=== PATIENT | male | born 1935 | race Caucasian/White ===

== ENCOUNTER 2017-08-17 17:00 | Inpatient (IN) | payer OTHER, MEDICARE ==
[~2017-08-17] VITALS: Ht 172.7 cm; Wt 71.3 kg
[2017-08-17 17:07] VITALS: BP 181/81; PULSE 85; RESP 18; TEMP 98.6; O2SAT 97
[2017-08-17 17:48] VITALS: BP 131/73; PULSE 82; RESP 18; TEMP 97.7; O2SAT 98
--- NOTE | 2017-08-17 18:32 | PD ---
HPI Chief Complaint: Psychiatric Symptoms Time Seen by Provider: 17:48 Travel History International Travel<30 days: No Contact w/Intl Traveler<30days: No Traveled to known affect area: No History of Present Illness HPI 82-year-old male presents to emergency department under He act. The patient was at physical therapy and he apparently made a statement that he was going to kill himself because he wanted to see his and they would not take him to see his . The patient has history of dementia and history of present illness is limited secondary to his dementia. The patient continuously nods his head yes when I ask him questions of being suicidal, homicidal, drug abuse, hallucinations. The patient keeps grabbing his pillow from the bed and saying that he wants to go see his . I feel the patient is not comprehending what I'm asking secondary to his dementia. I'm unable to obtain a full history of present illness secondary to his clinical condition and altered mental status. PFSH Social History Tobacco Use: No Allergies-Medications (Allergen,Severity, Reaction): Coded Allergies: No Known Allergies (Unverified , 08/17/17) Review of Systems ROS Limitations: Clinical Condition, Altered Mental Status Physical Exam Narrative GENERAL: Well-nourished, well-developed elderly, male patient, in no acute distress SKIN: Warm and dry. HEAD: Atraumatic. Normocephalic. EYES: Pupils equal and round. ENT: Mucosa pink and moist. NECK: Supple. Trachea midline. CARDIOVASCULAR: Regular rate and rhythm. No murmur appreciated. RESPIRATORY: No accessory muscle use. Clear to auscultation. Breath sounds equal bilaterally. GASTROINTESTINAL: Abdomen soft, non-tender, nondistended. Hepatic and splenic margins not palpable. Bowel sounds are active 4 quadrants. MUSCULOSKELETAL: No obvious deformities. No clubbing. No cyanosis. No edema. NEUROLOGICAL: Awake and alert. Not oriented. No obvious cranial nerve deficits. Motor grossly within normal limits. Normal speech. Moves all extremities. 5/5 strength to all extremities. PSYCHIATRIC: No delusional thought processes. No hallucinations. Data Data Last Documented VS Vital Signs Date Time Temp Pulse Resp B/P (MAP) Pulse Ox O2 Delivery O2 Flow Rate FiO2 08/17/17 17:48 97.7 82 18 131/73 (92) 98 Room Air Orders Orders Complete Blood Count With Diff (08/17/17 17:48) Comprehensive Metabolic Panel (08/17/17 17:48) Urinalysis - C+S If Indicated (08/17/17 17:48) Psych Screen (08/17/17 17:48) Drug Screen, Random Urine (08/17/17 17:48) Alcohol (Ethanol) (08/17/17 17:48) Salicylates (Aspirin) (08/17/17 17:48) Tylenol (Acetaminophen) (08/17/17 17:48) Ct Brain W/O Iv Contrast(Rout) (08/17/17 ) MDM Medical Decision Making Medical Screen Exam Complete: Yes Emergency Medical Condition: Yes Medical Record Reviewed: Yes Differential Diagnosis Dementia, Alzheimer's disease, suicidal threat medical clearance for psychiatric admission Narrative Course Patient presents under a He act. Physical examination and vital signs are essentially unremarkable. He has history of dementia and history of present illness is limited. I ordered a CT head to rule out any acute findings. Psych screen has been ordered. If the laboratory results are unremarkable, the patient will be medically cleared for psychiatric evaluation and disposition. Diagnosis Primary Impression: Medical clearance for psychiatric admission Condition: Stable Jewell Saucedo Aug 17, 2017 18:32
[2017-08-17] MEDS ORDERED: FINA5TAB2 PO (19:09)
[2017-08-17] MEDS ORDERED: METF850T PO (19:09)
[2017-08-17] MEDS ORDERED: TAMS5CAP PO (19:09)
[2017-08-17] MEDS ORDERED: METO50TA PO (19:09)
[2017-08-17] MEDS ORDERED: AMLO5TAB2 PO (19:09)
[2017-08-17] MEDS ORDERED: TRAZ50TA12 PO (19:09)
[2017-08-17] MEDS ORDERED: LANTUS2P SQ (19:09)
--- NOTE | 2017-08-17 19:53 | RADRPT ---
EXAM DATE/TIME: 08/17/2017 19:36 [place] COMPARISON: No previous studies available for comparison. INDICATIONS : Altered mental status. RADIATION DOSE: 32.38 CTDIvol (mGy) MEDICAL HISTORY : Dementia. SURGICAL HISTORY : None. ENCOUNTER: Initial ACUITY: 1 day PAIN SCALE: 0/10 LOCATION: cranial TECHNIQUE: Multiple contiguous axial images were obtained of the head. Using automated exposure control and adj ustment of the mA and/or kV according to patient size, radiation dose was kept as low as reasonably a chievable to obtain optimal diagnostic quality images. DICOM format image data is available electro nically for review and comparison. FINDINGS: There is diffuse atrophy and prominent hypodensity in the bilateral subcortical white matter, centrum semiovale and periventricular white matter characteristic of chronic microvascular ischemic disease. This does appear slightly more asymmetric in the right frontal region and the possibility of an area of subacute ischemia should be entertained. There is no evidence of hemorrhage or mass. No fractures . CONCLUSION: Atrophy and prominent white matter disease slightly asymmetric in the right frontal region as describ ed above. Tulio Jose MD on August 17, 2017 at 19:50 Board Certified Radiologist. This report was verified electronically.
[2017-08-17 20:57] LABS: AUTOMATED NEUTROPHIL # 7.7 TH/MM3 (1.8-7.7); BASOPHIL % 0.4 % (0.0-2.0); EOSINOPHIL # 0.1 TH/MM3 (0-0.4); EOSINOPHIL % 0.7 % (0.0-4.0); HEMATOCRIT 36.4 % (39.0-51.0); HEMOGLOBIN 12.2 GM/DL (13.0-17.0); LYMPH % 25.4 % (9.0-44.0); LYMPHOCYTE # 2.8 TH/MM3 (1.0-4.8); MEAN CELL VOLUME 87.4 FL (80.0-100.0); MEAN CORPUSCULAR HEMOGLOBIN 29.4 PG (27.0-34.0); MEAN CORPUSCULAR HGB CONC 33.6 % (32.0-36.0); MEAN PLATELET VOLUME 7.3 FL (7.0-11.0); MONOCYTE # 0.6 TH/MM3 (0-0.9); NEUT % 68.5 % (16.0-70.0); PLATELET COUNT 236 TH/MM3 (150-450); RED BLOOD COUNT 4.16 MIL/MM3 (4.50-5.90); RED CELL DISTRIBUTION WIDTH 13.1 % (11.6-17.2); WHITE BLOOD COUNT 11.2 TH/MM3 (4.0-11.0)
[2017-08-17 22:04] LABS: ACETAMINOPHEN LESS THAN 2.0 MCG/ML (10.0-30.0); ALBUMIN 3.9 GM/DL (3.4-5.0); ALKALINE PHOSPHATASE 52 U/L (45-117); ALT (GPT) 19 U/L (12-78); AST (GOT) 23 U/L (15-37); BLOOD UREA NITROGEN 11 MG/DL (7-18); CHLORIDE 100 MEQ/L (98-107); CREATININE 1.24 MG/DL (0.60-1.30); GLOMERULAR FILTRATION RATE 56 ML/MIN (>89); GLUCOSE,RANDOM 234 MG/DL (74-106); SODIUM (NA) 138 MEQ/L (136-145); TOTAL BILIRUBIN ADULT 0.5 MG/DL (0.2-1.0); TOTAL PROTEIN 7.5 GM/DL (6.4-8.2)
[2017-08-17 22:11] VITALS: BP 136/67; PULSE 70; RESP 18; TEMP 98.7; O2SAT 99
[2017-08-17] MEDS ORDERED: traZODone HCL 50 MG TAB PO ONE (22:45)
[2017-08-17] MEDS ORDERED: TAMSULOSIN HCL 0.4 MG CAP PO ONE (22:45)
[2017-08-17] MEDS ORDERED: metFORMIN HCL 850 MG TAB PO ONE (22:45)
[2017-08-17] MEDS ORDERED: INSULIN DETEMIR 100 UNITS/ML VIAL SQ SCH (22:45)
[2017-08-17] MEDS ORDERED: GLUCAGON 1 MG/ML VIAL OTHER PRN (23:00)
[2017-08-17] MEDS ORDERED: ACETAMINOPHEN 325 MG TAB PO PRN (23:00)
[2017-08-17] MEDS ORDERED: DEXTROSE 50% IN WATER 50 ML VIAL(D50) IV PUSH PRN (23:00)
[2017-08-17] MEDS ORDERED: NICOTINE 21 MG/24 HR PATCH T-DERMAL PRN (23:00)
[2017-08-17] MEDS ORDERED: MAGNESIUM HYDROXIDE SUSP 30 ML CUP PO PRN (23:00)
[2017-08-17] MEDS ORDERED: ALUMINUM/MAGNESIUM/SIMETH 30 ML CUP PO PRN (23:00)
[2017-08-17 23:35] VITALS: BP 151/80; PULSE 86; RESP 17; TEMP 97.7; O2SAT 97
[2017-08-18 05:47] VITALS: BP 114/58; PULSE 100; RESP 18; TEMP 98.4; O2SAT 98
[2017-08-18] MEDS: INSULIN ASPART SUPPLEMENTAL SCALE SQ SCH ×4 (08:00→20:36)
[2017-08-18 09:18] VITALS: BP 129/64; PULSE 95
[2017-08-18] MEDS: FINASTERIDE 5 MG TAB PO SCH (09:20)
[2017-08-18] MEDS: amLODIPine BESYLATE 5 MG TAB PO SCH (09:20)
[2017-08-18] MEDS: METOPROLOL TARTRATE 50 MG TAB PO SCH (09:20)
[2017-08-18 10:12] LABS: AUTOMATED NEUTROPHIL # 6.1 TH/MM3 (1.8-7.7); BASOPHIL # 0.1 TH/MM3 (0-0.2); BASOPHIL % 0.6 % (0.0-2.0); EOSINOPHIL # 0.1 TH/MM3 (0-0.4); EOSINOPHIL % 1.3 % (0.0-4.0); HEMATOCRIT 35.9 % (39.0-51.0); HEMOGLOBIN 12.1 GM/DL (13.0-17.0); LYMPH % 29.2 % (9.0-44.0); LYMPHOCYTE # 2.8 TH/MM3 (1.0-4.8); MEAN CELL VOLUME 86.4 FL (80.0-100.0); MEAN CORPUSCULAR HEMOGLOBIN 29.1 PG (27.0-34.0); MEAN CORPUSCULAR HGB CONC 33.7 % (32.0-36.0); MEAN PLATELET VOLUME 7.2 FL (7.0-11.0); MONO % 5.4 % (0.0-8.0); MONOCYTE # 0.5 TH/MM3 (0-0.9); NEUT % 63.5 % (16.0-70.0); PLATELET COUNT 211 TH/MM3 (150-450); RED BLOOD COUNT 4.16 MIL/MM3 (4.50-5.90); RED CELL DISTRIBUTION WIDTH 13.3 % (11.6-17.2); WHITE BLOOD COUNT 9.6 TH/MM3 (4.0-11.0)
[2017-08-18 10:59] LABS: BICARBONATE 31.2 MEQ/L (21.0-32.0); BLOOD UREA NITROGEN 14 MG/DL (7-18); CALCIUM 8.8 MG/DL (8.5-10.1); CHLORIDE 102 MEQ/L (98-107); CHOLESTEROL 133 MG/DL (120-200); CHOLESTEROL/ HDL RATIO 2.71 RATIO; CREATININE 0.99 MG/DL (0.60-1.30); GLOMERULAR FILTRATION RATE 72 ML/MIN (>89); GLUCOSE,RANDOM 125 MG/DL (74-106); HDL CHOLESTEROL 48.9 MG/DL (40.0-60.0); LDL CHOLESTEROL 63 MG/DL (0-99); SODIUM (NA) 140 MEQ/L (136-145); TRIGLYCERIDES 104 MG/DL (42-150)
--- NOTE | 2017-08-18 11:02 | HHI.HP ---
Provisional Diagnosis Admission Date Aug 17, 2017 at 22:48 [place] other diseases FiO2.81 with Alzheimer's disease UG 30.1 Certification of Person's Competence To Provide Express and Informed Consent I have personally examined Edgar Gilliland , a person being served at [facility] on, Aug 18, 2017 10:38. Express and informed consent means consent voluntarily given in writing, by a competent person, after sufficient explanation and disclosure of the subject matter involved to enable the person to make a knowing and willful decision without any element of force, fraud, deceit, duress, or other form of constraint or coercion. This person is 18 years of age or older, is not now known to be incompetent to consent to treatment with a guardian advocate, and does not have a health care surrogate or proxy currently making medical treatment decisions. I have found this person to be one of the following: [] Competent to provide express and informed consent, as defined above, for voluntary admission to this facility and is competent to provide express and informed consent for treatment. He/she has the consistent capacity to make well reasoned, willful, and knowing decisions concerning his or her medical or mental health treatment. The person fully and consistently understands the purpose of the admission for examination/placement and is fully capable of personally exercising all rights assured under [place]xxx] Incompetent to provide express and informed consent to voluntary admission , and this is incompetent to provide express and informed consent to treatment. The person must be transferred to involuntary status and a petition for a guardian advocate filed with the Circuit Court. [] Refusing to provide express and informed consent to voluntary admission but is competent to provide express and informed consent for treatment. The person must be discharged or transferred to involuntary status. Form shall be completed within 24 hours of a person's arrival at the receiving facility and filed in the clinical record of each person: 1. Admitted on a voluntary basis 2. Permitted to provide express and informed consent to his/her own treatment 3. Allowed to transfer from involuntary to voluntary status 4. Prior to permitting a person to consent to his or her own treatment after having been previously found incompetent to consent to treatment. History of Present Illness Capacity: Lacks Capacity Psych Chief Complaint: patient demented made suicidal statements HPI Patient is an 82-year-old male comes here under He act signed by the [facility]'s office dated 08/17/17 at 0349 hours that documented reviewed the essentially stating. During a therapy session Noel Gilliland stated he wanted to kill himself because of frustration. Piper Gilliland is bouts of Noel Gilliland said he has made statements like this in the past. Noel Gilliland is currently being treated for dementia. It appears the patient lives with his . They've has been suffering from dementia for next Monday. Of time. The rest sleep had a stroke was hospitalized at [facility] and released about 2-3 days ago with home health rehabilitation. It is during one of these visits that the statement was made. The rehabilitation nurse call the patient's physician who called the police leading to the He act in his admission to this unit. And toxicology was not drawn in the ED. Though blood alcohol level was negative. At the present time patient sitting quietly in the day room nurse dilip she present throughout session. He is alert oriented to his name only. Is not no the location date time or situation. Is with his . Though he is calling this place my home (referring to me personally). It appears there is no prior psychiatric contact hospitalization psychotropic medications. As mentioned patient does little his it appears there is no adult daughter who lives nearby who is involved with them. Present time patient does meet criteria for acute inpatient psychiatric hospitalization under the He act. I'll do first opinion request second opinion. I feel he has no capacity at this time thus I'll ask for healthcare surrogate and guardian advocate. We'll continue his medications with the med reconciliation. We will attempt to arrange a family meeting for Monday 08/21. There is notation in the psych screeners note that placement may become important to family . Review of Systems ROS Limitations: Clinical Condition, Altered Mental Status Past Psych History Psychological trauma history Difficult to ascertain due to patient's cognitive deficit Violence risk - others (6 mos) Low Violence risk - self (6 mos) Patient made statements referring to suicidal ideation intent Substance Abuse History Drugs/Alcohol past 12 months Difficult agitated at this time cognitive deficits Past Family Social History Coded Allergies: No Known Allergies (Unverified , 08/17/17) Reported Medications Tamsulosin (Flomax) 0.4 Mg Cap, 0.4 MG PO HS for Manage Prostate Problems, #30 CAP 0 Refills 08/17/17 Finasteride (Finasteride) 5 Mg Tab, 5 MG PO DAILY for Manage Prostate Problems, #30 TAB 0 Refills Do not crush. 08/17/17 Amlodipine (Amlodipine) 5 Mg Tab, 5 MG PO DAILY for Blood Pressure Management, # 30 TAB 0 Refills 08/17/17 Trazodone (Trazodone) 50 Mg Tab, 50 MG PO HS for Control Depression, #30 TAB 0 Refills 08/17/17 Metoprolol Tartrate (Metoprolol Tartrate) 50 Mg Tab, 50 MG PO DAILY, #30 TAB 0 Refills 08/17/17 Insulin Glargine Inj (Lantus Inj) 1,000 Unit/10 Ml Vial, 10 UNITS SQ HS for Blood Sugar Management, VIAL 0 Refills 08/17/17 Metformin (Metformin) 850 Mg Tab, 850 MG PO BIDPC for Blood Sugar Management, TAB 0 Refills 08/17/17 Current Medications Medications (Trade) Dose Ordered Sig/Britney Route Start Time Stop Time Status Last Admin (Norvasc) 5 mg DAILY PO 08/18/17 09:00 08/18/17 09:20 (Proscar) 5 mg DAILY PO 08/18/17 09:00 08/18/17 09:20 (Levemir Inj) 10 units HS SQ 08/18/17 21:00 (Lopressor) 50 mg DAILY PO 08/18/17 09:00 08/18/17 09:20 (Flomax) 0.4 mg HS PO 08/18/17 21:00 (Desyrel) 50 mg HS PO 08/18/17 21:00 Future Hold (Tylenol) 650 mg Q4H PRN PO 08/17/17 23:00 (Milk Of Magnesia Liq) 30 ml DAILY PRN PO 08/17/17 23:00 (Mag-Al Plus Susp Liq) 30 ml Q6H PRN PO 08/17/17 23:00 (Habitrol 21 Mg Patch.24 Hr) 1 patch DAILY PRN T-DERMAL 08/17/17 23:00 (D50w (Vial) Inj) 50 ml UNSCH PRN IV PUSH 08/17/17 23:00 (Glucagon Inj) 1 mg UNSCH PRN OTHER 08/17/17 23:00 (NovoLOG SUPPLEMENTAL SCALE) 1 ACHS SLIDING SCALE SQ 08/18/17 08:00 (Melatonin) 5 mg HS PRN PO 08/17/17 23:00 Future Hold Family Psych History Unknown at this time due to cognitive deficits Social History Patient lives with his , appears an adult daughter who is local and involved with family Patient's Strengths (min. 2) Patient able axis health care has supportive family Physical Exam Patient medically cleared in ED patient sitting quietly in dayroom in no acute distress, no respiratory distress no complaints of pain Vital Signs Vital Signs Date Time Temp Pulse Resp B/P (MAP) Pulse Ox O2 Delivery O2 Flow Rate FiO2 08/18/17 09:18 95 129/64 (85) 08/18/17 05:47 98.4 18 98 08/17/17 22:11 Room Air Lab Results Test 08/17/17 20:30 08/18/17 08:27 08/18/17 08:28 White Blood Count 11.2 TH/MM3 9.6 TH/MM3 Red Blood Count 4.16 MIL/MM3 4.16 MIL/MM3 Hemoglobin 12.2 GM/DL 12.1 GM/DL Hematocrit 36.4 % 35.9 % Mean Corpuscular Volume 87.4 FL 86.4 FL Mean Corpuscular Hemoglobin 29.4 PG 29.1 PG Mean Corpuscular Hemoglobin Concent 33.6 % 33.7 % Red Cell Distribution Width 13.1 % 13.3 % Platelet Count 236 TH/MM3 211 TH/MM3 Mean Platelet Volume 7.3 FL 7.2 FL Neutrophils (%) (Auto) 68.5 % 63.5 % Lymphocytes (%) (Auto) 25.4 % 29.2 % Monocytes (%) (Auto) 5.0 % 5.4 % Eosinophils (%) (Auto) 0.7 % 1.3 % Basophils (%) (Auto) 0.4 % 0.6 % Neutrophils # (Auto) 7.7 TH/MM3 6.1 TH/MM3 Lymphocytes # (Auto) 2.8 TH/MM3 2.8 TH/MM3 Monocytes # (Auto) 0.6 TH/MM3 0.5 TH/MM3 Eosinophils # (Auto) 0.1 TH/MM3 0.1 TH/MM3 Basophils # (Auto) 0.0 TH/MM3 0.1 TH/MM3 CBC Comment DIFF FINAL DIFF FINAL Differential Comment Blood Urea Nitrogen 11 MG/DL Creatinine 1.24 MG/DL Random Glucose 234 MG/DL Total Protein 7.5 GM/DL Albumin 3.9 GM/DL Calcium Level 9.0 MG/DL Alkaline Phosphatase 52 U/L Aspartate Amino Transf (AST/SGOT) 23 U/L Alanine Aminotransferase (ALT/SGPT) 19 U/L Total Bilirubin 0.5 MG/DL Sodium Level 138 MEQ/L Potassium Level 4.1 MEQ/L Chloride Level 100 MEQ/L Carbon Dioxide Level 28.0 MEQ/L Anion Gap 10 MEQ/L Estimat Glomerular Filtration Rate 56 ML/MIN Salicylates Level LESS THAN 1.7 MG/DL Acetaminophen Level LESS THAN 2.0 MCG/ML Ethyl Alcohol Level LESS THAN 3 MG/DL Mental Status Examination Appearance: Appropriate Consciousness: Alert Orientation: Person (vaguely) Motor Activity: Other (unable ascertain patient sitting down in day room will get PT assessment) Speech: Hesitant Language: Other (disorganized) Fund of Knowledge: Poor Attention and Concentration: Easily Distracted Memory: Impaired Mood: Other (restricted mildly dysphoric) Affect: Other (decreased range of motion intensity) Thought Process & Associations: Disorganized Thought Content: Other (disorganized) Hallucination Type: None Delusion Type: None Suicidal Ideation: Yes (patient made vague suicidal statements) Suicidal Plan: No Suicidal Intention: No Homicidal Ideation: No Homicidal Plan: No Homicidal Intention: No Insight: Poor Judgment: Poor Assessment & Plan Problem List: (1) OTHER ALZHEIMER'S DISEASE ICD Codes: G30.8 - OTHER ALZHEIMER'S DISEASE (2) DEMENTIA IN OTH DISEASES CLASSD ELSWHR W BEHAVIORAL DISTURB ICD Codes: F02.81 - DEMENTIA IN OTH DISEASES CLASSD ELSWHR W BEHAVIORAL DISTURB Assessment & Plan Estimated LOS 7: days patient meets criteria for involuntary psychiatric hospitalization of the He act I'll do first opinion request second opinion. I feel he is no capacity thus I'll ask for healthcare surrogate and guardian advocate. We'll continue medication per med reconciliation. Continue her observation assessment. Attempt to arrange family meeting for Monday 08/21 Discharge Planning See above we need to confer with family about placement issues Request HC Surrog/Guard Advoc?: Yes Sanford Patel MD Aug 18, 2017 11:02
--- NOTE | 2017-08-18 15:41 | PD.CONS ---
[facility] By Dr. Tee Reason for Consult Chronic medical conditions decreased GFR Primary Care Physician Unknown Diagnoses: (1) Dementia (2) BPH (benign prostatic hyperplasia) (3) Diabetes mellitus (4) HTN (hypertension) (5) Decreased GFR History of Present Illness 82-year-old male with past medical history significant for dementia, BPH, diabetes, and hypertension admitted to inpatient psychiatry under a He act following suicidal statements to home physical therapist. Patient is seen and examined in his room with nurse at bedside. He is alert and oriented to self and believes he is in a hospital. He denies any pain or discomfort, denies fevers, chills, nausea, vomiting, diarrhea. When asked later if he is having pain with urination he says yes. Patient noted to have soiled pants with urine. I asked patient if he is aware when he has to use the restroom and he says yes. Patient is a very poor historian and information was gathered from the daughter Piper who is listed as next of kin. Daughter states that patient was in his usual state of health when he fell at home and was treated at [facility]. She reports that patient suffered a minor stroke, asked if he suffered any bleed in the brain but daughter is unsure. She reports that patient did not have any imaging done as he would not stay still. She also denies knowing of any aspirin or blood thinners. She reports that patient was discharged home with physical therapy and was doing well up until the day he made suicidal statements. His other history includes dementia which is not a new diagnosis, BPH, diabetes, and hypertension. Daughter states that patient was doing well and the only change to his medications recently was increased and his blood pressure medicine. Review of Systems Except as stated in HPI: all other systems reviewed are Neg Past Family Social History Allergies: Coded Allergies: No Known Allergies (Unverified , 08/17/17) Past Medical History History obtained from Daughter Piper Dementia BPH HTN ?mild stroke after fall, not able to have imaging due to constant movement. Past Surgical History History obtained from Gilles Saldaña Hernia repair Reported Medications Reported Meds & Active Scripts Active Reported Flomax (Tamsulosin HCl) 0.4 Mg Cap 0.4 Mg PO HS Finasteride 5 Mg Tab 5 Mg PO DAILY Do not crush. Amlodipine (Amlodipine Besylate) 5 Mg Tab 5 Mg PO DAILY Trazodone (Trazodone HCl) 50 Mg Tab 50 Mg PO HS Metoprolol Tartrate 50 Mg Tab 50 Mg PO DAILY Lantus Inj (Insulin Glargine) 1,000 Unit/10 Ml Vial 10 Units SQ HS Metformin (Metformin HCl) 850 Mg Tab 850 Mg PO BIDPC Active Ordered Medications Current Medications Medications (Trade) Dose Ordered Sig/Britney Route Start Time Stop Time Status Last Admin (Norvasc) 5 mg DAILY PO 08/18/17 09:00 08/18/17 09:20 (Proscar) 5 mg DAILY PO 08/18/17 09:00 08/18/17 09:20 (Levemir Inj) 10 units HS SQ 08/18/17 21:00 (Lopressor) 50 mg DAILY PO 08/18/17 09:00 08/18/17 09:20 (Flomax) 0.4 mg HS PO 08/18/17 21:00 (Desyrel) 50 mg HS PO 08/18/17 21:00 Future Hold (Tylenol) 650 mg Q4H PRN PO 08/17/17 23:00 (Milk Of Magnesia Liq) 30 ml DAILY PRN PO 08/17/17 23:00 (Mag-Al Plus Susp Liq) 30 ml Q6H PRN PO 08/17/17 23:00 (D50w (Vial) Inj) 50 ml UNSCH PRN IV PUSH 08/17/17 23:00 (Glucagon Inj) 1 mg UNSCH PRN OTHER 08/17/17 23:00 (NovoLOG SUPPLEMENTAL SCALE) 1 ACHS SLIDING SCALE SQ 08/18/17 08:00 08/18/17 11:47 (Melatonin) 5 mg HS PRN PO 08/17/17 23:00 Future Hold (Atarax) 50 mg Q6H PRN PO 08/18/17 11:00 Family History Mom: breast CA Father: DM Social History History obtained from Daughter Piper Tobacco:never smoked Alcohol: Holidays and special occasions Illicit drug use: Denies Physical Exam Vital Signs Vital Signs Date Time Temp Pulse Resp B/P (MAP) Pulse Ox O2 Delivery O2 Flow Rate FiO2 08/18/17 09:18 95 129/64 (85) 08/18/17 05:47 98.4 100 18 114/58 (76) 98 08/17/17 23:56 08/17/17 23:35 97.7 86 17 151/80 (103) 97 08/17/17 22:11 98.7 70 18 136/67 (90) 99 Room Air 08/17/17 17:48 97.7 82 18 131/73 (92) 98 Room Air 08/17/17 17:07 98.6 85 18 181/81 (114) 97 Physical Exam GENERAL: This is a well-nourished, well-developed patient, in no apparent distress. SKIN: No rashes, ecchymoses or lesions. Cool and dry. HEAD: Atraumatic. Normocephalic. EYES: Pupils equal round and reactive. Extraocular motions intact. No scleral icterus. No injection or drainage. ENT: Nose without bleeding, purulent drainage or septal hematoma. Throat without erythema. Uvula midline. Airway patent. NECK: Trachea midline. No JVD. Supple, nontender. CARDIOVASCULAR: Regular rate and rhythm without murmurs, gallops, or rubs. RESPIRATORY: Clear to auscultation. Breath sounds equal bilaterally. No wheezes , rales, or rhonchi. GASTROINTESTINAL: Abdomen soft, non-tender, nondistended. No guarding. MUSCULOSKELETAL: Extremities without clubbing, cyanosis, or edema. No joint tenderness, effusion, or edema noted. No calf tenderness. NEUROLOGICAL: Awake and alert. Cranial nerves II through XII intact. Motor and sensory grossly within normal limits. 4/4 muscle strength in all muscle groups. Normal speech, no facial droop. Laboratory Laboratory Tests Test 08/17/17 20:30 08/18/17 08:27 08/18/17 08:28 White Blood Count 11.2 9.6 Red Blood Count 4.16 4.16 Hemoglobin 12.2 12.1 Hematocrit 36.4 35.9 Mean Corpuscular Volume 87.4 86.4 Mean Corpuscular Hemoglobin 29.4 29.1 Mean Corpuscular Hemoglobin Concent 33.6 33.7 Red Cell Distribution Width 13.1 13.3 Platelet Count 236 211 Mean Platelet Volume 7.3 7.2 Neutrophils (%) (Auto) 68.5 63.5 Lymphocytes (%) (Auto) 25.4 29.2 Monocytes (%) (Auto) 5.0 5.4 Eosinophils (%) (Auto) 0.7 1.3 Basophils (%) (Auto) 0.4 0.6 Neutrophils # (Auto) 7.7 6.1 Lymphocytes # (Auto) 2.8 2.8 Monocytes # (Auto) 0.6 0.5 Eosinophils # (Auto) 0.1 0.1 Basophils # (Auto) 0.0 0.1 CBC Comment DIFF FINAL DIFF FINAL Differential Comment Blood Urea Nitrogen 11 14 Creatinine 1.24 0.99 Random Glucose 234 125 Total Protein 7.5 Albumin 3.9 Calcium Level 9.0 8.8 Alkaline Phosphatase 52 Aspartate Amino Transf (AST/SGOT) 23 Alanine Aminotransferase (ALT/SGPT) 19 Total Bilirubin 0.5 Sodium Level 138 140 Potassium Level 4.1 3.7 Chloride Level 100 102 Carbon Dioxide Level 28.0 31.2 Anion Gap 10 7 Estimat Glomerular Filtration Rate 56 72 Salicylates Level LESS THAN 1.7 Acetaminophen Level LESS THAN 2.0 Ethyl Alcohol Level LESS THAN 3 Triglycerides Level 104 Cholesterol Level 133 LDL Cholesterol 63 HDL Cholesterol 48.9 Cholesterol/HDL Ratio 2.71 Thyroid Stimulating Hormone 3rd Gen 1.010 Result Diagram: 08/18/17 0827 08/18/17 0828 Imaging Last Impressions Head CT 08/17/17 0000 Signed Impressions: Service Date/Time: August 19:36 - CONCLUSION: Atrophy and prominent white matter disease slightly asymmetric in the right frontal region as described above. Tulio Jose MD Assessment and Plan Assessment and Plan 82-year-old male with past medical history significant for dementia, BPH, diabetes, and hypertension admitted to inpatient psychiatry under a He act following suicidal statements to home physical therapist. Alzheimer/dementia - Patient He acted following suicidal statements to home physical therapist - Continue psych recommendations Hypertension, controlled - Continue Norvasc 5 mg daily, and metoprolol 50 mg daily, continue monitoring BP Diabetes II - Hemoglobin A1c pending - BS this a.m. 115, noon 253 - Insulin sliding scale low dose, consider increasing to medium dose depending on blood sugar trend - Continue Levemir 10 units at bedtime, metformin on hold due to decreased GFR - Continue 1800 ADA diet, will add bedtime snack. Decreased GFR - Daughter denies any known renal history. - Creatinine 1.24---->0.99, GFR 59---> 72 - Renal function slightly improved, continue glycemic control with insulin - Avoid nephrotoxic agents. - Recheck renal function 1/7 BPH - Continue Flomax 0.4 mg - Episode of incontinence noted, UA ordered and sent - Patient has been afebrile, WBC count this morning normal ? Stroke - CT brain completed 08/17 reviewed, atrophy and prominent white matter disease slightly asymmetric in the right frontal region, possibility of an acute or subacute ischemia should be entertained, no evidence of hemorrhage, mass or fractures. - Patient with no residual weakness noted - Will try and obtain medical records from [facility], consider starting low dose ASA if patient was diagnosed with stroke. DVT prophylaxis-patient ambulating Patient was discussed with nurse, and daughter Piper. Problem Qualifiers (1) Diabetes mellitus: Ketan Arora Aug 18, 2017 15:41
[2017-08-18 16:39] LABS: BACTERIA, URINE OCC /hpf; BILIRUBIN, URINE NEG (NEG); BLOOD, URINE NEG (NEG); GLUCOSE,URINE 150 mg/dL (NEG); KETONE, URINE NEG (NEG); MUCUS URINE FEW /lpf (OCC); NITRITE,URINE POS (NEG); SQUAMOUS EPITHELIAL CELL URINE <1 /hpf (0-5); URINE COLOR YELLOW (YELLW/STRAW); URINE LEUKOCYTE ESTERASE SMALL (NEG)
[2017-08-18 18:16] VITALS: BP 131/66; PULSE 77; RESP 16; TEMP 98.2; O2SAT 97
[2017-08-18] MEDS: TAMSULOSIN HCL 0.4 MG CAP PO SCH (20:38)
[2017-08-18] MEDS: traZODone HCL 50 MG TAB PO SCH (20:38)
[2017-08-18] MEDS ORDERED: traZODone HCL 50 MG TAB PO SCH (21:00)
[2017-08-18] MEDS ORDERED: INSULIN DETEMIR 100 UNITS/ML VIAL SQ SCH (21:00)
--- NOTE | 2017-08-18 22:03 | EKG ---
Date Performed: 08/18/2017 Time Performed: 01:09:39 PTAGE: 82 years EKG: Sinus rhythm WITH OCCASIONAL VENTRICULAR PREMATURE COMPLEXES WITH OCCASIONAL SUPRAVENTRICULAR PREMATURE COMPLEXES BORDERLINE ECG NO PREVIOUS TRACING DOCTOR: Kevyn Gutierrez Interpretating Date/Time 08/18/2017 22:02:54
[2017-08-19 06:12] VITALS: BP 155/64; PULSE 109; RESP 18; TEMP 97.5; O2SAT 96
[2017-08-19] MEDS: INSULIN ASPART SUPPLEMENTAL SCALE SQ SCH ×4 (08:00→20:33)
[2017-08-19] MEDS: METOPROLOL TARTRATE 50 MG TAB PO SCH ×2 (09:17→20:36)
[2017-08-19] MEDS: amLODIPine BESYLATE 5 MG TAB PO SCH (09:17)
[2017-08-19] MEDS: FINASTERIDE 5 MG TAB PO SCH (09:17)
[2017-08-19] MEDS: hydrOXYzine HCL 50 MG TAB PO PRN ×2 (12:48→18:36)
--- NOTE | 2017-08-19 15:10 | HHI.PR ---
Subjective Remarks Follow-up visit dementia, BPH, DM 2, HTN. Patient seen and examined today lying in bed. Reports he is doing well. States that he is cold. Diffuse otherwise denies pain or discomfort. Denies chest pain palpitations. Denies fevers, chills, nausea, vomiting, diarrhea. Denies dysuria. Objective Vitals Vital Signs Date Time Temp Pulse Resp B/P (MAP) Pulse Ox O2 Delivery O2 Flow Rate FiO2 08/19/17 06:12 97.5 109 18 155/64 (94) 96 08/18/17 18:16 98.2 77 16 131/66 (87) 97 Result Diagram: 08/18/17 0827 08/18/17 0828 Imaging Last Impressions Head CT 08/17/17 0000 Signed Impressions: Service Date/Time: August 19:36 - CONCLUSION: Atrophy and prominent white matter disease slightly asymmetric in the right frontal region as described above. Tulio Jose MD Objective Remarks GENERAL: This is a well-nourished, well-developed patient, in no apparent distress. SKIN: Warm and dry. HEENT: Normocephalic. Pupils equal round and reactive. Nose without bleeding. Airway patent. NECK: Trachea midline. CARDIOVASCULAR: Regular rate and rhythm without murmurs, gallops, or rubs. RESPIRATORY: Clear to auscultation. Breath sounds equal bilaterally. No wheezes , rales, or rhonchi. GASTROINTESTINAL: Abdomen soft, non-tender, nondistended. Bowel Sounds normoactive x4. MUSCULOSKELETAL: Extremities without clubbing, cyanosis, or edema. NEUROLOGICAL: Awake and alert. Oriented to person. No focal neuro deficit. Moves all extremities. Normal speech. A/P Problem List: (1) Dementia ICD Code: F03.90 - Unspecified dementia without behavioral disturbance (2) BPH (benign prostatic hyperplasia) ICD Code: N40.0 - Benign prostatic hyperplasia without lower urinary tract symptoms (3) Diabetes mellitus ICD Code: E11.9 - Type 2 diabetes mellitus without complications (4) HTN (hypertension) ICD Code: I10 - Essential (primary) hypertension (5) Decreased GFR ICD Code: R94.4 - Abnormal results of kidney function studies Assessment and Plan 82-year-old male with past medical history significant for dementia, BPH, diabetes, and hypertension admitted to inpatient psychiatry under a He act following suicidal statements to home physical therapist. Alzheimer/dementia - He acted following suicidal statements to home physical therapist - Edged by psychiatry team Hypertension, controlled - Continue Norvasc 5 mg daily, and metoprolol 50 mg daily, continue monitoring BP Diabetes 2, uncontrolled - Hemoglobin A1c 10 - Insulin sliding scale low dose. - Increase Levemir 10 units twice a day, continue to hold metformin due to decreased GFR - Continue 1800 ADA diet, will add bedtime snack. - Monitor glucose trend Decreased GFR - Daughter denies any known renal history. - Creatinine 1.24 --->0.99, GFR 59 ---> 72 - Renal function slightly improved, continue glycemic control with insulin - Avoid nephrotoxic agents. BPH - Continue Flomax 0.4 mg - Episode of incontinence noted, UA ordered and sent - Patient has been afebrile, WBC count this morning normal ? Stroke - CT brain completed 08/17 reviewed, atrophy and prominent white matter disease slightly asymmetric in the right frontal region, possibility of an acute or subacute ischemia should be entertained, no evidence of hemorrhage, mass or fractures. - Patient with no residual weakness noted - Obtain medical records from [facility] - Start Low dose ASA 81 DVT prophylaxis-patient ambulating Problem Qualifiers (1) Diabetes mellitus: Jose Ramon Stacy Aug 19, 2017 15:10
[2017-08-19] MEDS: INSULIN DETEMIR 100 UNITS/ML VIAL SQ SCH (16:00)
--- NOTE | 2017-08-19 16:42 | HHI.PYPN ---
Subjective Chief Complaint: patient demented made suicidal statements Remarks Is a request for second opinion. Patient was seen and case was discussed with nursing. Admission note was reviewed and I agree with the contents. He remains labile and tearful. He says he feels hopeless and has passive suicidal ideation that he was not alive. He has no intent or plan. Behaving well on the unit. Mental Status Examination Appearance: Appropriate Consciousness: Alert Orientation: Person (vaguely), Place Motor Activity: Other (unable ascertain patient sitting down in day room will get PT assessment) Speech: Hesitant Language: Other (disorganized) Fund of Knowledge: Poor Attention and Concentration: Easily Distracted Memory: Impaired Mood: Other (restricted mildly dysphoric) Affect: Other (decreased range of motion intensity) Thought Process & Associations: Disorganized Thought Content: Other (disorganized) Hallucination Type: None Delusion Type: None Suicidal Ideation: Yes (patient made vague suicidal statements) Suicidal Plan: No Suicidal Intention: No Homicidal Ideation: No Homicidal Plan: No Homicidal Intention: No Insight: Poor Judgment: Poor Results Labs Date/Time Source Procedure Growth Status 08/18/17 15:21 Urine Clean Catch Urine Culture - Final 50-100,000 CFU/ML MIXED JUAN... Complete Vitals/IOs Vital Signs Date Time Temp Pulse Resp B/P (MAP) Pulse Ox O2 Delivery O2 Flow Rate FiO2 08/19/17 06:12 97.5 109 18 155/64 (94) 96 08/17/17 22:11 Room Air Assessment & Plan Problem List: (1) OTHER ALZHEIMER'S DISEASE ICD Codes: G30.8 - OTHER ALZHEIMER'S DISEASE (2) DEMENTIA IN OTH DISEASES CLASSD ELSWHR W BEHAVIORAL DISTURB ICD Codes: F02.81 - DEMENTIA IN OTH DISEASES CLASSD ELSWHR W BEHAVIORAL DISTURB Assessment & Plan I agree with the first opinion to continue petition. Criteria include suicidal ideation Justification for Cont. Inpt. Patient will decompensate in a less restrictive setting Request HC Surrog/Guard Advoc?: Yes Mike Alba DO Aug 19, 2017 16:42
[2017-08-19 18:14] VITALS: BP 120/64; PULSE 96; RESP 18; TEMP 96.8; O2SAT 100
[2017-08-19] MEDS: traZODone HCL 50 MG TAB PO SCH (20:36)
[2017-08-19] MEDS: TAMSULOSIN HCL 0.4 MG CAP PO SCH (20:36)
[2017-08-20] MEDS: hydrOXYzine HCL 50 MG TAB PO PRN ×2 (02:47→16:00)
[2017-08-20 06:00] VITALS: BP 116/61; PULSE 78; RESP 17; TEMP 97.4; O2SAT 99
[2017-08-20] MEDS: INSULIN DETEMIR 100 UNITS/ML VIAL SQ SCH ×2 (06:04→16:00)
[2017-08-20] MEDS: INSULIN ASPART SUPPLEMENTAL SCALE SQ SCH ×4 (08:00→19:54)
[2017-08-20] MEDS: amLODIPine BESYLATE 5 MG TAB PO SCH (08:39)
[2017-08-20] MEDS: ASPIRIN EC 81 MG TABEC PO SCH (08:39)
[2017-08-20] MEDS: FINASTERIDE 5 MG TAB PO SCH (08:39)
[2017-08-20] MEDS: METOPROLOL TARTRATE 50 MG TAB PO SCH ×2 (08:39→19:55)
--- NOTE | 2017-08-20 15:38 | HHI.PYPN ---
Subjective Chief Complaint: patient demented made suicidal statements Remarks Patient was seen and case discussed with nursing. Interview conducted in Bulgarian today. Patient appears improved compared to yesterday where he was making suicidal thoughts. Today he is perseverant on Jg where any bad thoughts that he gets will be solved by his beliefs. He does not appear to remember the statements he made yesterday. He says his mood has improved and he is no longer depressed. Denies suicidal or homicidal ideation intent or plan. Affect is congruent, not tearful Mental Status Examination Appearance: Appropriate Consciousness: Alert Orientation: Person (vaguely), Place Motor Activity: Other (unable ascertain patient sitting down in day room will get PT assessment) Speech: Hesitant Language: Other (disorganized) Fund of Knowledge: Poor Attention and Concentration: Easily Distracted Memory: Impaired Mood: Anxious Affect: Anxious Thought Process & Associations: Disorganized Thought Content: Preoccupations, Other (disorganized) Hallucination Type: None Delusion Type: None Suicidal Ideation: Yes (patient made vague suicidal statements) Suicidal Plan: No Suicidal Intention: No Homicidal Ideation: No Homicidal Plan: No Homicidal Intention: No Insight: Poor Judgment: Poor Results Labs Date/Time Source Procedure Growth Status 08/18/17 15:21 Urine Clean Catch Urine Culture - Final 50-100,000 CFU/ML MIXED JUAN... Complete Vitals/IOs Vital Signs Date Time Temp Pulse Resp B/P (MAP) Pulse Ox O2 Delivery O2 Flow Rate FiO2 08/20/17 06:00 97.4 78 17 116/61 (79) 99 08/17/17 22:11 Room Air Intake and Output 08/20/17 08/20/17 08/21/17 08:00 16:00 00:00 Intake Total 0 ml 240 ml Balance 0 ml 240 ml Assessment & Plan Problem List: (1) OTHER ALZHEIMER'S DISEASE ICD Codes: G30.8 - OTHER ALZHEIMER'S DISEASE (2) DEMENTIA IN OTH DISEASES CLASSD ELSWHR W BEHAVIORAL DISTURB ICD Codes: F02.81 - DEMENTIA IN OTH DISEASES CLASSD ELSWHR W BEHAVIORAL DISTURB Assessment & Plan Continue current treatment plan Justification for Cont. Inpt. Patient will decompensate in a less restrictive setting Request HC Surrog/Guard Advoc?: Yes Mike Alba DO Aug 20, 2017 15:38
[2017-08-20 18:08] VITALS: BP 148/67; PULSE 89; RESP 18; TEMP 97.4
[2017-08-20] MEDS ORDERED: diphenhydrAMINE HCL 50 MG/ML VIAL ONE (18:22)
[2017-08-20] MEDS ORDERED: LORazepam 2 MG/ML VIAL ONE (18:22)
[2017-08-20] MEDS ORDERED: LORazepam 2 MG/ML VIAL IM ONE (18:30)
[2017-08-20] MEDS ORDERED: diphenhydrAMINE HCL 50 MG/ML VIAL IM ONE (18:30)
[2017-08-20] MEDS: traZODone HCL 50 MG TAB PO SCH (19:55)
[2017-08-20] MEDS: TAMSULOSIN HCL 0.4 MG CAP PO SCH (19:55)
[2017-08-21] MEDS: INSULIN DETEMIR 100 UNITS/ML VIAL SQ SCH ×2 (06:12→15:49)
[2017-08-21 06:49] VITALS: BP 142/92; PULSE 81; RESP 16; TEMP 97.5; O2SAT 97
[2017-08-21] MEDS: INSULIN ASPART SUPPLEMENTAL SCALE SQ SCH ×4 (07:29→21:00)
[2017-08-21] MEDS: METOPROLOL TARTRATE 50 MG TAB PO SCH ×2 (08:51→21:00)
[2017-08-21] MEDS: amLODIPine BESYLATE 5 MG TAB PO SCH (08:51)
[2017-08-21] MEDS: ASPIRIN EC 81 MG TABEC PO SCH (08:51)
[2017-08-21] MEDS: FINASTERIDE 5 MG TAB PO SCH (08:52)
--- NOTE | 2017-08-21 09:41 | HHI.PR ---
Subjective Remarks Follow-up visit dementia, BPH, DM 2, HTN. Patient seen and examined sitting up in day room, appears somewhat sleepy still. He is oriented to self and place, denies any pain, SOB, headache, or fevers. He does not voice any complaints or concerns. Objective Vitals Vital Signs Date Time Temp Pulse Resp B/P (MAP) Pulse Ox O2 Delivery O2 Flow Rate FiO2 08/21/17 06:49 97.5 81 16 142/92 (109) 97 08/20/17 18:08 97.4 89 18 148/67 (94) I/O 08/20/17 08/20/17 08/20/17 08/21/17 08/21/17 08/21/17 07:00 15:00 23:00 07:00 15:00 23:00 Intake Total 0 ml 240 ml 120 ml Balance 0 ml 240 ml 120 ml Intake Oral 0 ml 240 ml 120 ml # Voids 1 Result Diagram: 08/18/17 0827 08/18/17 0828 Imaging Last Impressions Head CT 08/17/17 0000 Signed Impressions: Service Date/Time: August 19:36 - CONCLUSION: Atrophy and prominent white matter disease slightly asymmetric in the right frontal region as described above. Tulio Jose MD Objective Remarks GENERAL: This is a well-nourished, well-developed patient, in no apparent distress. SKIN: Warm and dry. HEENT: Normocephalic. Pupils equal round and reactive. Nose without bleeding. Airway patent. NECK: Trachea midline. CARDIOVASCULAR: Regular rate and rhythm without murmurs, gallops, or rubs. RESPIRATORY: Clear to auscultation. Breath sounds equal bilaterally. No wheezes , rales, or rhonchi. GASTROINTESTINAL: Abdomen soft, non-tender, nondistended. Bowel Sounds normoactive x4. MUSCULOSKELETAL: Extremities without clubbing, cyanosis, or edema. NEUROLOGICAL: Awake and alert. Oriented to person and place. No focal neuro deficit. Moves all extremities bilateral upper and lower extremity strength + 4. Normal speech. A/P Problem List: (1) Dementia ICD Code: F03.90 - Unspecified dementia without behavioral disturbance (2) BPH (benign prostatic hyperplasia) ICD Code: N40.0 - Benign prostatic hyperplasia without lower urinary tract symptoms (3) Diabetes mellitus ICD Code: E11.9 - Type 2 diabetes mellitus without complications (4) HTN (hypertension) ICD Code: I10 - Essential (primary) hypertension (5) Decreased GFR ICD Code: R94.4 - Abnormal results of kidney function studies Assessment and Plan 82-year-old male with past medical history significant for dementia, BPH, diabetes, and hypertension admitted to inpatient psychiatry under a He act following suicidal statements to home physical therapist. Alzheimer/dementia - He acted following suicidal statements to home physical therapist - Treatment by psychiatry team Hypertension, controlled - Continue Norvasc 5 mg daily, and metoprolol 50 mg daily - Diastolic slightly elevated to day 92, continue to monitor and adjust medications if needed, otherwise his BP has been well controlled. Diabetes 2, uncontrolled - Hemoglobin A1c 10 - Insulin sliding scale low dose. - Levemir 10 units twice a day, continue to hold metformin due to decreased GFR - Continue 1800 ADA diet, with bedtime snack. - Monitor glucose trend Decreased GFR - Daughter denies any known renal history. - Creatinine 1.24 --->0.99, GFR 59 ---> 72 - Renal function slightly improved, continue glycemic control with insulin - Avoid nephrotoxic agents. BPH - Continue Flomax 0.4 mg - Episode of incontinence noted, UA culture with >15-100,000 mixed barry, probably contaminated. - Patient has been afebrile and asymptomatic, last WBC count normal ? Stroke - CT brain completed 08/17 reviewed, atrophy and prominent white matter disease slightly asymmetric in the right frontal region, possibility of an acute or subacute ischemia should be entertained, no evidence of hemorrhage, mass or fractures. - Patient with no residual weakness noted - Continue low dose ASA 81 DVT prophylaxis-patient ambulating Problem Qualifiers (1) Diabetes mellitus: Ketan Arora Aug 21, 2017 09:41
--- NOTE | 2017-08-21 10:19 | PD.TTN ---
Patient Problems 1. Discharge planning 2. Medication compliance 3. Knowledge deficit 4. Lack of coping skills Progress Toward Goals Provider Present: Dr. Parker Patel Provider Input: 08/21/2017 - Dr. Patel reports that we will have a family meeting with this patient's on Tuesday, August 22, 2017 at 9:s0 a.m. Psychiatric Counselors Present: KESHA Mccoy Psych Therapist Input: 08/21/2017 - Counselor will attend a family meeting tomorros at 9:30 to discuss treatment plan, medication management, and plan for discharge. Group Spec/RT/OT/GARCIA Present: Severo Guerrero OT Group Spec/RT/OT/GARCIA Input: 08/21/2017 - Patient is not participating in groups. Discharge Plan SMA Documentation Scribe: KESHA Mccoy Date Resolved: Aug 21, 2017 Rosemarie Brown Aug 21, 2017 10:19
--- NOTE | 2017-08-21 12:26 | HHI.PYPN ---
Subjective Chief Complaint: patient demented made suicidal statements Remarks Patient seen in day room with nurse Bernice, patient calm quiet pleasantly confused. No behavior problems noted, patient compliant medications. Review of Systems Except as stated in HPI: all other systems reviewed are Neg Mental Status Examination Appearance: Appropriate Consciousness: Alert Orientation: Person (vaguely), Place Motor Activity: Other (unable ascertain patient sitting down in day room will get PT assessment) Speech: Hesitant Language: Other (disorganized) Fund of Knowledge: Poor Attention and Concentration: Easily Distracted Memory: Impaired Mood: Anxious Affect: Anxious Thought Process & Associations: Disorganized Thought Content: Preoccupations, Other (disorganized) Hallucination Type: None Delusion Type: None Suicidal Ideation: Yes (patient made vague suicidal statements) Suicidal Plan: No Suicidal Intention: No Homicidal Ideation: No Homicidal Plan: No Homicidal Intention: No Insight: Poor Judgment: Poor Results Labs Date/Time Source Procedure Growth Status 08/18/17 15:21 Urine Clean Catch Urine Culture - Final 50-100,000 CFU/ML MIXED JUAN... Complete Vitals/IOs Vital Signs Date Time Temp Pulse Resp B/P (MAP) Pulse Ox O2 Delivery O2 Flow Rate FiO2 08/21/17 06:49 97.5 81 16 142/92 (109) 97 08/17/17 22:11 Room Air Assessment & Plan Problem List: (1) OTHER ALZHEIMER'S DISEASE ICD Codes: G30.8 - OTHER ALZHEIMER'S DISEASE (2) DEMENTIA IN OTH DISEASES CLASSD ELSWHR W BEHAVIORAL DISTURB ICD Codes: F02.81 - DEMENTIA IN OTH DISEASES CLASSD ELSWHR W BEHAVIORAL DISTURB Assessment & Plan Estimated LOS: days patient remains demented and confused, no behavioral problems at this time Justification for Cont. Inpt. At this time patient will decompensate in place to the lower level of care Discharge Planning Need further discussion of patient's family Request HC Surrog/Guard Advoc?: Yes Sanford Patel MD Aug 21, 2017 12:26
[2017-08-21 17:00] VITALS: BP 147/66; PULSE 88; RESP 16; TEMP 98.2; O2SAT 98
[2017-08-21] MEDS: traZODone HCL 50 MG TAB PO SCH (21:00)
[2017-08-21] MEDS: TAMSULOSIN HCL 0.4 MG CAP PO SCH (21:00)
[2017-08-22 06:00] VITALS: BP 100/53; PULSE 81; RESP 17; TEMP 98.6; O2SAT 98
[2017-08-22 06:17] VITALS: BP 100/53; PULSE 81; RESP 17; TEMP 98.6
[2017-08-22] MEDS: INSULIN DETEMIR 100 UNITS/ML VIAL SQ SCH ×2 (06:36→16:08)
[2017-08-22] MEDS: INSULIN ASPART SUPPLEMENTAL SCALE SQ SCH ×4 (07:00→21:00)
[2017-08-22] MEDS: amLODIPine BESYLATE 5 MG TAB PO SCH (07:09)
[2017-08-22 07:20] VITALS: BP 109/58
[2017-08-22] MEDS: METOPROLOL TARTRATE 50 MG TAB PO SCH ×2 (07:20→21:16)
[2017-08-22] MEDS: FINASTERIDE 5 MG TAB PO SCH (08:38)
[2017-08-22] MEDS: ASPIRIN EC 81 MG TABEC PO SCH (08:38)
[2017-08-22 09:46] LABS: BICARBONATE 29.4 MEQ/L (21.0-32.0); CALCIUM 8.7 MG/DL (8.5-10.1); CREATININE 1.16 MG/DL (0.60-1.30)
--- NOTE | 2017-08-22 10:41 | HHI.PYPN ---
Subjective Chief Complaint: patient demented made suicidal statements Remarks Patient seen in day room with nurse Amador chart review, patient continues confused demented somewhat labile stating over and over again "I want to be with my " while patient no significant behavior today was noted that after last family visits he became quite out of control. Will add Seroquel 25 mg 3 times a day at noon 5 PM and 10 PM Review of Systems Except as stated in HPI: all other systems reviewed are Neg Mental Status Examination Appearance: Appropriate Consciousness: Alert Orientation: Person (vaguely), Place Motor Activity: Other (unable ascertain patient sitting down in day room will get PT assessment) Speech: Hesitant Language: Other (disorganized) Fund of Knowledge: Poor Attention and Concentration: Easily Distracted Memory: Impaired Mood: Anxious Affect: Anxious Thought Process & Associations: Disorganized Thought Content: Preoccupations, Other (disorganized) Hallucination Type: None Delusion Type: None Suicidal Ideation: Yes (patient made vague suicidal statements) Suicidal Plan: No Suicidal Intention: No Homicidal Ideation: No Homicidal Plan: No Homicidal Intention: No Insight: Poor Judgment: Poor Results Labs Test 08/22/17 08:20 Blood Urea Nitrogen 32 MG/DL Creatinine 1.16 MG/DL Random Glucose 160 MG/DL Calcium Level 8.7 MG/DL Sodium Level 138 MEQ/L Potassium Level 4.0 MEQ/L Chloride Level 102 MEQ/L Carbon Dioxide Level 29.4 MEQ/L Anion Gap 7 MEQ/L Estimat Glomerular Filtration Rate 60 ML/MIN Date/Time Source Procedure Growth Status 08/18/17 15:21 Urine Clean Catch Urine Culture - Final 50-100,000 CFU/ML MIXED JUAN... Complete Vitals/IOs Vital Signs Date Time Temp Pulse Resp B/P (MAP) Pulse Ox O2 Delivery O2 Flow Rate FiO2 08/22/17 07:20 109/58 (75) 08/22/17 06:17 98.6 81 17 08/22/17 06:00 98 Intake and Output 08/22/17 08/22/17 08/22/17 07:59 15:59 23:59 Intake Total 360 ml Balance 360 ml Assessment & Plan Problem List: (1) OTHER ALZHEIMER'S DISEASE ICD Codes: G30.8 - OTHER ALZHEIMER'S DISEASE (2) DEMENTIA IN OTH DISEASES CLASSD ELSWHR W BEHAVIORAL DISTURB ICD Codes: F02.81 - DEMENTIA IN OTH DISEASES CLASSD [facility]HAV[facility]AL DISTURB Assessment & Plan Estimated LOS: days patient continues confused and demented seen medication adjustments above Justification for Cont. Inpt. This time patient will decompensate placed in a lower level of care Discharge Planning This needs to discussed with patient's family Request HC Surrog/Guard Advoc?: Yes Sanford Patel MD Aug 22, 2017 10:41
[2017-08-22] MEDS: QUEtiapine FUMARATE 25 MG TAB PO SCH ×3 (12:00→23:14)
--- NOTE | 2017-08-22 13:19 | HHI.PR ---
Subjective Remarks overall doing fine. denies pain or new complaints. blood sugar trend noted. Objective Vitals Vital Signs Date Time Temp Pulse Resp B/P (MAP) Pulse Ox O2 Delivery O2 Flow Rate FiO2 08/22/17 07:20 109/58 (75) 08/22/17 06:17 98.6 81 17 100/53 (69) 08/22/17 06:00 98.6 81 17 100/53 (69) 98 08/21/17 17:00 98.2 88 16 147/66 (93) 98 I/O 08/21/17 08/21/17 08/21/17 08/22/17 08/22/17 08/22/17 06:59 14:59 22:59 06:59 14:59 22:59 Intake Total 120 ml 480 ml 720 ml 120 ml 480 ml Balance 120 ml 480 ml 720 ml 120 ml 480 ml Intake Oral 120 ml 480 ml 720 ml 120 ml 480 ml # Voids 5 1 2 # Bowel Movements 1 Result Diagram: 08/18/17 0827 08/22/17 0820 Imaging Last Impressions Head CT 08/17/17 0000 Signed Impressions: Service Date/Time: August 19:36 - CONCLUSION: Atrophy and prominent white matter disease slightly asymmetric in the right frontal region as described above. Tulio Jose MD Objective Remarks GENERAL: This is a well-nourished, well-developed patient, in no apparent distress. CARDIOVASCULAR: Regular rate and regular rhythm without murmurs, gallops, or rubs. RESPIRATORY: Clear to auscultation. Breath sounds equal bilaterally. No wheezes , rales, or rhonchi. GASTROINTESTINAL: Abdomen soft, non-tender, nondistended. Normal, active bowel sounds MUSCULOSKELETAL: Extremities without clubbing, cyanosis, or edema. NEURO: awake and alert Medications and IVs Inpatient Medications Acetaminophen (Tylenol) 650 mg Q4H PRN PO Pain 1-5 or Temp >101F Last administered on 08/19/17at 05:25; Start 08/17/17 at 23:00 Al Hydrox/Mg Hydrox/Simethicone (Mag-Al Plus Susp Liq) 30 ml Q6H PRN PO DYSPEPSIA; Start 08/17/17 at 23:00 Amlodipine Besylate (Norvasc) 5 mg DAILY PO Last administered on 08/21/17at 08:51 ; Start 08/18/17 at 09:00 Aspirin (Ecotrin Ec) 81 mg DAILY PO Last administered on 08/22/17at 08:38; Start 08/20/17 at 09:00 Dextrose (D50w (Vial) Inj) 50 ml UNSCH PRN IV PUSH HYPOGLYCEMIA-SEE COMMENTS; Start 08/17/17 at 23:00 Diphenhydramine HCl (Benadryl Inj) 50 mg NOW ONCE IM ; Start 08/20/17 at 18:30; Stop 08/20/17 at 18:31; Status DC Finasteride (Proscar) 5 mg DAILY PO Last administered on 08/22/17at 08:38; Start 08/18/17 at 09:00 Glucagon (Glucagon Inj) 1 mg UNSCH PRN OTHER HYPOGLYCEMIA-SEE COMMENTS; Start 08/17/17 at 23:00 Hydroxyzine HCl (Atarax) 50 mg Q6H PRN PO ANXIETY Last administered on at 16:00; Start 08/18/17 at 11:00 Insulin Aspart (NovoLOG SUPPLEMENTAL SCALE) 1 ACHS SLIDING SCALE SQ Last administered on 08/22/17at 11:09; Start 08/18/17 at 08:00 Insulin Detemir (Levemir Inj) 10 units BIDAC SQ Last administered on 08/22/17at 06:36; Start 08/19/17 at 16:00 Lorazepam (Ativan Inj) 1 mg NOW ONCE IM ; Start 08/20/17 at 18:30; Stop 08/20/17 at 18:31; Status DC Magnesium Hydroxide (Milk Of Magnesia Liq) 30 ml DAILY PRN PO CONSTIPATION; Start 08/17/17 at 23:00 Melatonin (Melatonin) 5 mg HS PRN PO INSOMNIA; Start 08/17/17 at 23:00; Status Future hold Metformin HCl (Glucophage) 850 mg ONCE ONCE PO Last administered on 08/17/17at 22:45; Start 08/17/17 at 22:45; Stop 08/17/17 at 22:46; Status DC Metoprolol Tartrate (Lopressor) 50 mg BID PO Last administered on 08/21/17at 21: 00; Start 08/19/17 at 21:00 Nicotine (Habitrol 21 Mg Patch.24 Hr) 1 patch DAILY PRN T-DERMAL Nicotine craving; Start 08/17/17 at 23:00; Stop 08/18/17 at 10:38; Status DC Quetiapine Fumarate (SEROquel) 25 mg TID@1200,1700,2200 PO Last administered on 08/22/17at 12:00; Start 08/22/17 at 12:00 Tamsulosin HCl (Flomax) 0.4 mg HS PO Last administered on 08/21/17at 21:00; Start 08/18/17 at 21:00 Trazodone HCl (Desyrel) 50 mg HS PO Last administered on 08/21/17at 21:00; Start 08/18/17 at 21:00 A/P Problem List: (1) Dementia ICD Code: F03.90 - Unspecified dementia without behavioral disturbance (2) BPH (benign prostatic hyperplasia) ICD Code: N40.0 - Benign prostatic hyperplasia without lower urinary tract symptoms (3) Diabetes mellitus ICD Code: E11.9 - Type 2 diabetes mellitus without complications (4) HTN (hypertension) ICD Code: I10 - Essential (primary) hypertension (5) Decreased GFR ICD Code: R94.4 - Abnormal results of kidney function studies Assessment and Plan Alzheimer/dementia - He acted following suicidal statements to home physical therapist - Treatment by psychiatry team Hypertension, controlled - Continue Norvasc 5 mg daily, and metoprolol 50 mg daily Diabetes 2, uncontrolled - Hemoglobin A1c 10 - Insulin sliding scale low dose. - Levemir 10 units twice a day, continue to hold metformin due to decreased GFR - Continue 1800 ADA diet, with bedtime snack. - Monitor glucose trend Decreased GFR - Daughter denies any known renal history. - Renal function slightly improved, continue glycemic control with insulin - Avoid nephrotoxic agents. BPH - Continue Flomax 0.4 mg - Episode of incontinence noted, UA culture with >15-100,000 mixed barry, probably contaminated. - Patient has been afebrile and asymptomatic, last WBC count normal ? Stroke - CT brain completed 08/17 reviewed, atrophy and prominent white matter disease slightly asymmetric in the right frontal region, possibility of an acute or subacute ischemia should be entertained, no evidence of hemorrhage, mass or fractures. - Patient with no residual weakness noted - Continue low dose ASA 81 Problem Qualifiers (1) Diabetes mellitus: Kimani Valdivia MD Aug 22, 2017 13:19
[2017-08-22 17:18] VITALS: BP 117/60; PULSE 102; RESP 16; TEMP 97.5; O2SAT 98
[2017-08-22] MEDS: traZODone HCL 50 MG TAB PO SCH (21:16)
[2017-08-22] MEDS: TAMSULOSIN HCL 0.4 MG CAP PO SCH (21:16)
[2017-08-23 06:07] VITALS: BP 119/59; PULSE 70; RESP 16; TEMP 98.4
[2017-08-23] MEDS: INSULIN ASPART SUPPLEMENTAL SCALE SQ SCH ×4 (08:00→21:00)
[2017-08-23] MEDS: amLODIPine BESYLATE 5 MG TAB PO SCH (09:00)
[2017-08-23] MEDS: METOPROLOL TARTRATE 50 MG TAB PO SCH ×2 (09:00→21:00)
[2017-08-23] MEDS: ASPIRIN EC 81 MG TABEC PO SCH (09:04)
[2017-08-23] MEDS: FINASTERIDE 5 MG TAB PO SCH (09:04)
[2017-08-23] MEDS: INSULIN DETEMIR 100 UNITS/ML VIAL SQ SCH ×2 (09:21→16:00)
--- NOTE | 2017-08-23 12:09 | HHI.PYPN ---
Subjective Chief Complaint: patient demented made suicidal statements Remarks Patient seen in day room with nurse Sea, chart reviewed, patient compliant medication. Patient continues confused and disoriented. Though that this time no significant behavioral problems. For now continue treatment Review of Systems Except as stated in HPI: all other systems reviewed are Neg Mental Status Examination Appearance: Appropriate Consciousness: Alert Orientation: Person (vaguely), Place Motor Activity: Other (unable ascertain patient sitting down in day room will get PT assessment) Speech: Hesitant Language: Other (disorganized) Fund of Knowledge: Poor Attention and Concentration: Easily Distracted Memory: Impaired Mood: Anxious Affect: Anxious Thought Process & Associations: Disorganized Thought Content: Preoccupations, Other (disorganized) Hallucination Type: None Delusion Type: None Suicidal Ideation: Yes (patient made vague suicidal statements) Suicidal Plan: No Suicidal Intention: No Homicidal Ideation: No Homicidal Plan: No Homicidal Intention: No Insight: Poor Judgment: Poor Results Labs Date/Time Source Procedure Growth Status 08/18/17 15:21 Urine Clean Catch Urine Culture - Final 50-100,000 CFU/ML MIXED JUAN... Complete Vitals/IOs Vital Signs Date Time Temp Pulse Resp B/P (MAP) Pulse Ox O2 Delivery O2 Flow Rate FiO2 08/23/17 06:07 98.4 70 16 119/59 (79) 08/22/17 17:18 98 Assessment & Plan Problem List: (1) OTHER ALZHEIMER'S DISEASE ICD Codes: G30.8 - OTHER ALZHEIMER'S DISEASE (2) DEMENTIA IN OTH DISEASES CLASSD ELSWHR W BEHAVIORAL DISTURB ICD Codes: F02.81 - DEMENTIA IN OTH DISEASES CLASSD ELSWHR W BEHAVIORAL DISTURB Assessment & Plan Estimated LOS: days patient continues confused and dementing, though no significant behavior problems at this time. Compliant medications. Justification for Cont. Inpt. At this time patient will decompensate if placed in a lower level of care Discharge Planning Continue to work with family to find appropriate placement Request HC Surrog/Guard Advoc?: Yes Sanford Patel MD Aug 23, 2017 12:09
[2017-08-23] MEDS: QUEtiapine FUMARATE 25 MG TAB PO SCH ×3 (12:27→22:00)
--- NOTE | 2017-08-23 16:58 | HHI.PR ---
Subjective Remarks The patient is seen resting in his room, awake, alert. He has no medical complaints. Blood glucose trend noted to be elevated in afternoons after lunch, adjusted insulin. Vital signs reviewed and stable. Objective Vitals Vital Signs Date Time Temp Pulse Resp B/P (MAP) Pulse Ox O2 Delivery O2 Flow Rate FiO2 08/23/17 06:07 98.4 70 16 119/59 (79) 08/22/17 17:18 97.5 102 16 117/60 (79) 98 I/O 08/22/17 08/22/17 08/22/17 08/23/17 08/23/17 08/23/17 07:00 15:00 23:00 07:00 15:00 23:00 Intake Total 120 ml 1080 ml Balance 120 ml 1080 ml Intake Oral 120 ml 1080 ml # Voids 2 6 1 # Bowel Movements 0 Result Diagram: 08/22/17 0820 Imaging Last Impressions Head CT 08/17/17 0000 Signed Impressions: Service Date/Time: August 19:36 - CONCLUSION: Atrophy and prominent white matter disease slightly asymmetric in the right frontal region as described above. Tulio Jose MD Objective Remarks GENERAL: Well-nourished, well-developed elderly male patient in [facility]. SKIN: Warm and dry. No rash. HEENT: Normocephalic. Atraumatic.Pupils equal and round. Mucous membranes pink and moist. NECK: Supple. Trachea midline. CARDIOVASCULAR: Regular rate and rhythm. S1, S2 noted. No murmur appreciated. RESPIRATORY: No accessory muscle use. Clear to auscultation. Breath sounds equal bilaterally. GASTROINTESTINAL: Abdomen soft, non-tender, nondistended. Normoactive bowel sounds x4. MUSCULOSKELETAL: No obvious deformities. Extremities without clubbing, cyanosis , or edema. NEUROLOGICAL: Awake and alert. No obvious cranial nerve deficits. Motor grossly within normal limits. Normal speech. Medications and IVs Current Medications Medications (Trade) Dose Ordered Sig/Britney Route Start Time Stop Time Status Last Admin (Norvasc) 5 mg DAILY PO 08/18/17 09:00 08/21/17 08:51 (Proscar) 5 mg DAILY PO 08/18/17 09:00 08/23/17 09:04 (Flomax) 0.4 mg HS PO 08/18/17 21:00 08/22/17 21:16 (Tylenol) 650 mg Q4H PRN PO 08/17/17 23:00 08/19/17 05:25 (Milk Of Magnesia Liq) 30 ml DAILY PRN PO 08/17/17 23:00 (Mag-Al Plus Susp Liq) 30 ml Q6H PRN PO 08/17/17 23:00 (D50w (Vial) Inj) 50 ml UNSCH PRN IV PUSH 08/17/17 23:00 (Glucagon Inj) 1 mg UNSCH PRN OTHER 08/17/17 23:00 (NovoLOG SUPPLEMENTAL SCALE) 1 ACHS SLIDING SCALE SQ 08/18/17 08:00 08/23/17 15:58 (Melatonin) 5 mg HS PRN PO 08/17/17 23:00 Future hold (Atarax) 50 mg Q6H PRN PO 08/18/17 11:00 08/20/17 16:00 (Desyrel) 50 mg HS PO 08/18/17 21:00 08/22/17 21:16 (Levemir Inj) 10 units BIDAC SQ 08/19/17 16:00 08/23/17 16:00 (Lopressor) 50 mg BID PO 08/19/17 21:00 08/22/17 21:16 (Ecotrin Ec) 81 mg DAILY PO 08/20/17 09:00 08/23/17 09:04 (SEROquel) 25 mg TID@1200,1700,2200 PO 08/22/17 12:00 08/23/17 16:05 (NovoLOG INJ) 3 units DAILY@1200 SQ 08/24/17 12:00 A/P Problem List: (1) Dementia ICD Code: F03.90 - Unspecified dementia without behavioral disturbance (2) BPH (benign prostatic hyperplasia) ICD Code: N40.0 - Benign prostatic hyperplasia without lower urinary tract symptoms (3) Diabetes mellitus ICD Code: E11.9 - Type 2 diabetes mellitus without complications (4) HTN (hypertension) ICD Code: I10 - Essential (primary) hypertension (5) Decreased GFR ICD Code: R94.4 - Abnormal results of kidney function studies Assessment and Plan Alzheimer/dementia - He acted following suicidal statements to home physical therapist - Continue treatment by psychiatry team Hypertension, controlled - Continue Norvasc 5 mg daily, and metoprolol 50 mg bid Diabetes 2, uncontrolled - Hemoglobin A1c 10 - Insulin sliding scale low dose. - Levemir 10 units bid, continue to hold metformin due to decreased GFR - Continue 1800 ADA diet, with bedtime snack. - Monitor glucose trend - 08/23 - blood glucose noted to be elevated after lunch, added Novolog 3u at lunchtime in addition to SSI, if blood sugars improved over next 1-2 days will plan to sign off Decreased GFR - Daughter and patient denies any known renal history. - Renal function slightly improved, continue glycemic control with insulin - Avoid nephrotoxic agents. BPH - Continue Flomax 0.4 mg - Episode of incontinence noted, urine culture with >15-100,000 mixed barry, probably contaminated. - Patient has been afebrile and asymptomatic, last WBC count normal ? Stroke - CT brain completed 08/17 reviewed, atrophy and prominent white matter disease slightly asymmetric in the right frontal region, possibility of an acute or subacute ischemia should be entertained, no evidence of hemorrhage, mass or fractures. - Patient with no residual weakness on exam - Continue low dose ASA 81 DVT Prophylaxis: patient is ambulatory Problem Qualifiers (1) Diabetes mellitus: Karina Hays PA-C Aug 23, 2017 4:58 pm
[2017-08-23 18:00] VITALS: BP 127/66; PULSE 69; RESP 18; TEMP 97.9; O2SAT 99
[2017-08-23] MEDS: traZODone HCL 50 MG TAB PO SCH ×2 (21:00→23:51)
[2017-08-23] MEDS: TAMSULOSIN HCL 0.4 MG CAP PO SCH (21:00)
[2017-08-24] MEDS: hydrOXYzine HCL 50 MG TAB PO PRN ×2 (01:20→23:17)
[2017-08-24] MEDS: MELATONIN 5 MG TAB PO PRN ×2 (01:20→23:17)
[2017-08-24] MEDS: QUEtiapine FUMARATE 25 MG TAB PO SCH ×4 (01:25→20:45)
[2017-08-24] MEDS: TAMSULOSIN HCL 0.4 MG CAP PO SCH ×2 (01:25→20:45)
[2017-08-24] MEDS: INSULIN DETEMIR 100 UNITS/ML VIAL SQ SCH ×2 (06:22→16:17)
[2017-08-24] MEDS: INSULIN ASPART SUPPLEMENTAL SCALE SQ SCH ×4 (08:00→20:53)
[2017-08-24] MEDS: amLODIPine BESYLATE 5 MG TAB PO SCH (08:18)
[2017-08-24] MEDS: FINASTERIDE 5 MG TAB PO SCH (08:18)
[2017-08-24] MEDS: ASPIRIN EC 81 MG TABEC PO SCH (08:18)
[2017-08-24] MEDS: METOPROLOL TARTRATE 50 MG TAB PO SCH ×2 (08:18→20:45)
[2017-08-24] MEDS: INSULIN ASPART 1,000 UNITS/10 ML VIAL SQ SCH (11:29)
--- NOTE | 2017-08-24 11:50 | HHI.PYPN ---
Subjective Chief Complaint: patient demented made suicidal statements Remarks Patient seen in [employer] [place] retained by Judge Cuellar. Chart review. Patient compliant medications. Patient spoke through a court bailiff. His confusion cognitive impairments or evidence, though his behavior was good and responded well to questions from the log skidder. Patient seen later in the day room is calm pleasant with me continues confused and disorganized. Review of Systems Except as stated in HPI: all other systems reviewed are Neg Mental Status Examination Appearance: Appropriate Consciousness: Alert Orientation: Person (vaguely), Place Motor Activity: Other (unable ascertain patient sitting down in day room will get PT assessment) Speech: Hesitant Language: Other (disorganized) Fund of Knowledge: Poor Attention and Concentration: Easily Distracted Memory: Impaired Mood: Anxious Affect: Anxious Thought Process & Associations: Disorganized Thought Content: Preoccupations, Other (disorganized) Hallucination Type: None Delusion Type: None Suicidal Ideation: Yes (patient made vague suicidal statements) Suicidal Plan: No Suicidal Intention: No Homicidal Ideation: No Homicidal Plan: No Homicidal Intention: No Insight: Poor Judgment: Poor Results Labs Date/Time Source Procedure Growth Status 08/18/17 15:21 Urine Clean Catch Urine Culture - Final 50-100,000 CFU/ML MIXED JUAN... Complete Vitals/IOs Vital Signs Date Time Temp Pulse Resp B/P (MAP) Pulse Ox O2 Delivery O2 Flow Rate FiO2 08/23/17 18:00 97.9 69 18 127/66 (86) 99 Intake and Output 08/24/17 08/24/17 08/25/17 08:00 16:00 00:00 Intake Total 480 ml Balance 480 ml Assessment & Plan Problem List: (1) OTHER ALZHEIMER'S DISEASE ICD Codes: G30.8 - OTHER ALZHEIMER'S DISEASE (2) DEMENTIA IN OTH DISEASES CLASSD ELSWHR W BEHAVIORAL DISTURB ICD Codes: F02.81 - DEMENTIA IN OTH DISEASES CLASSD ELSWHR W BEHAVIORAL DISTURB Assessment & Plan Estimated LOS: day patient retained by Master Carpenter Alisa in [employer] [address]. Patient continues confused disoriented though no significant behavior problems today. For now continue treatment Justification for Cont. Inpt. This time patient will decompensate and placed a lower level of care Discharge Planning Placement remains problematic continue to work with family Request HC Surrog/Guard Advoc?: Yes Sanford Patel MD Aug 24, 2017 11:50
[2017-08-24 16:50] VITALS: BP_SYST 104; BP_SYST 139; BP_DIAS 53; BP_DIAS 76; PULSE 97; PULSE 99; RESP 17; RESP 18; TEMP 97.2; O2SAT 95
[2017-08-24] MEDS: traZODone HCL 50 MG TAB PO SCH (20:45)
[2017-08-25 06:23] VITALS: BP 119/64; PULSE 75; RESP 16; TEMP 97.6; O2SAT 99
[2017-08-25] MEDS: INSULIN ASPART SUPPLEMENTAL SCALE SQ SCH ×4 (06:53→20:37)
[2017-08-25] MEDS: amLODIPine BESYLATE 5 MG TAB PO SCH (08:41)
[2017-08-25] MEDS: METOPROLOL TARTRATE 50 MG TAB PO SCH ×2 (08:41→20:31)
[2017-08-25] MEDS: FINASTERIDE 5 MG TAB PO SCH (08:42)
[2017-08-25] MEDS: ASPIRIN EC 81 MG TABEC PO SCH (08:42)
[2017-08-25] MEDS: INSULIN ASPART 1,000 UNITS/10 ML VIAL SQ SCH (11:36)
[2017-08-25] MEDS: QUEtiapine FUMARATE 25 MG TAB PO SCH ×3 (12:00→20:31)
--- NOTE | 2017-08-25 12:49 | HHI.PYPN ---
Subjective Chief Complaint: patient demented made suicidal statements Remarks Patient seen in day room with nurse Sea, chart reviewed, patient compliant medication. Patient continues confused disoriented though no behavior problems at the present time. Continue to work with family on placement issues Review of Systems Except as stated in HPI: all other systems reviewed are Neg Mental Status Examination Appearance: Appropriate Consciousness: Alert Orientation: Person (vaguely), Place Motor Activity: Other (unable ascertain patient sitting down in day room will get PT assessment) Speech: Hesitant Language: Other (disorganized) Fund of Knowledge: Poor Attention and Concentration: Easily Distracted Memory: Impaired Mood: Anxious Affect: Anxious Thought Process & Associations: Disorganized Thought Content: Preoccupations, Other (disorganized) Hallucination Type: None Delusion Type: None Suicidal Ideation: Yes (patient made vague suicidal statements) Suicidal Plan: No Suicidal Intention: No Homicidal Ideation: No Homicidal Plan: No Homicidal Intention: No Insight: Poor Judgment: Poor Results Labs Date/Time Source Procedure Growth Status 08/18/17 15:21 Urine Clean Catch Urine Culture - Final 50-100,000 CFU/ML MIXED JUAN... Complete Vitals/IOs Vital Signs Date Time Temp Pulse Resp B/P (MAP) Pulse Ox O2 Delivery O2 Flow Rate FiO2 08/25/17 06:23 97.6 75 16 119/64 (82) 99 Intake and Output 08/25/17 08/25/17 08/26/17 08:00 16:00 00:00 Intake Total 360 ml Balance 360 ml Assessment & Plan Problem List: (1) OTHER ALZHEIMER'S DISEASE ICD Codes: G30.8 - OTHER ALZHEIMER'S DISEASE (2) DEMENTIA IN OTH DISEASES CLASSD ELSWHR W BEHAVIORAL DISTURB ICD Codes: F02.81 - DEMENTIA IN OTH DISEASES CLASSD ELSWHR W BEHAVIORAL DISTURB Assessment & Plan Estimated LOS: days patient continues confused and demented in no behavior problems at this time. For now continue treatment Justification for Cont. Inpt. At this time patient will decompensate with no placed in an appropriate level of care Discharge Planning Continue to work with family on placement issues Request HC Surrog/Guard Advoc?: Yes Sanford Patel MD Aug 25, 2017 12:49
[2017-08-25] MEDS ORDERED: LORazepam 2 MG/ML VIAL IM STA (14:33)
[2017-08-25] MEDS ORDERED: OLANZapine IM 10 MG VIAL IM STA (14:33)
[2017-08-25] MEDS ORDERED: OLANZapine IM 10 MG VIAL IM ONE (14:34)
[2017-08-25] MEDS ORDERED: LORazepam 2 MG/ML VIAL ONE (14:34)
[2017-08-25] MEDS: INSULIN DETEMIR 100 UNITS/ML VIAL SQ SCH (16:00)
[2017-08-25] MEDS: TAMSULOSIN HCL 0.4 MG CAP PO SCH (20:30)
[2017-08-25] MEDS: MELATONIN 5 MG TAB PO PRN (20:30)
[2017-08-25] MEDS: traZODone HCL 50 MG TAB PO SCH (20:30)
[2017-08-26] MEDS ORDERED: OLANZapine IM 10 MG VIAL IM ONE (01:00)
[2017-08-26] MEDS ORDERED: LORazepam 2 MG/ML VIAL IM ONE (01:00)
[2017-08-26] MEDS: hydrOXYzine HCL 50 MG TAB PO PRN (01:06)
[2017-08-26] MEDS: INSULIN ASPART SUPPLEMENTAL SCALE SQ SCH ×4 (06:37→20:38)
[2017-08-26 06:48] VITALS: BP 150/88; PULSE 97; RESP 16; TEMP 97; O2SAT 99
[2017-08-26] MEDS: INSULIN DETEMIR 100 UNITS/ML VIAL SQ SCH ×2 (07:00→16:00)
[2017-08-26] MEDS: ASPIRIN EC 81 MG TABEC PO SCH (09:00)
[2017-08-26] MEDS: amLODIPine BESYLATE 5 MG TAB PO SCH (09:00)
[2017-08-26] MEDS: FINASTERIDE 5 MG TAB PO SCH (09:00)
[2017-08-26] MEDS: METOPROLOL TARTRATE 50 MG TAB PO SCH ×2 (09:00→20:37)
--- NOTE | 2017-08-26 10:37 | HHI.PYPN ---
Subjective Chief Complaint: patient demented made suicidal statements Remarks Pt seen and discussed with chief of staff doctor. Pt remains floridly confused. He was agitated yesterday and early this morning and received ETOs of zyprexa IM. Today he has been sleeping most of the day. No aggression today. Mental Status Examination Appearance: Appropriate Consciousness: Alert, Asleep (but arousable) Orientation: Person (vaguely), Place Motor Activity: Other (unable ascertain patient sitting down in day room will get PT assessment) Speech: Hesitant Language: Other (disorganized) Fund of Knowledge: Poor Attention and Concentration: Easily Distracted Memory: Impaired Mood: Other (calm) Affect: Flat Thought Process & Associations: Disorganized Thought Content: Preoccupations, Other (disorganized) Hallucination Type: None Delusion Type: None Suicidal Ideation: No Suicidal Plan: No Suicidal Intention: No Homicidal Ideation: No Homicidal Plan: No Homicidal Intention: No Insight: Poor Judgment: Poor Results Labs Date/Time Source Procedure Growth Status 08/18/17 15:21 Urine Clean Catch Urine Culture - Final 50-100,000 CFU/ML MIXED JUAN... Complete Vitals/IOs Vital Signs Date Time Temp Pulse Resp B/P (MAP) Pulse Ox O2 Delivery O2 Flow Rate FiO2 08/26/17 06:48 97.0 97 16 150/88 (108) 99 Assessment & Plan Problem List: (1) OTHER ALZHEIMER'S DISEASE ICD Codes: G30.8 - OTHER ALZHEIMER'S DISEASE (2) DEMENTIA IN OTH DISEASES CLASSD ELSWHR W BEHAVIORAL DISTURB ICD Codes: F02.81 - DEMENTIA IN OTH DISEASES CLASSD ELSWHR W BEHAVIORAL DISTURB Assessment & Plan Continue current tx plan. Estimated LOS: days Justification for Cont. Inpt. impairments insafety Request HC Surrog/Guard Advoc?: Yes Birdie Leggett MD Aug 26, 2017 10:37
[2017-08-26] MEDS: QUEtiapine FUMARATE 25 MG TAB PO SCH ×3 (11:49→21:27)
[2017-08-26] MEDS: INSULIN ASPART 1,000 UNITS/10 ML VIAL SQ SCH (11:49)
--- NOTE | 2017-08-26 15:44 | HHI.PR ---
Subjective Remarks Follow up for diabetes. The patient is seen resting in the recliner in the dayroom, in presence of the RN. The patient required IM Ativan and IM Zyprexa at 1am this morning, therefore he is still slightly drowsy. He does awaken to voice. He denies any medical complaints. RN reports he ate lunch. Vital signs reviewed and stable. Blood sugars improving. Objective Vitals Vital Signs Date Time Temp Pulse Resp B/P (MAP) Pulse Ox O2 Delivery O2 Flow Rate FiO2 08/26/17 06:48 97.0 97 16 150/88 (108) 99 I/O 08/25/17 08/25/17 08/25/17 08/26/17 08/26/17 08/26/17 07:00 15:00 23:00 07:00 15:00 23:00 Intake Total 600 ml 240 ml Balance 600 ml 240 ml Intake Oral 600 ml 240 ml # Voids 3 1 Result Diagram: 08/22/17 0820 Imaging Last Impressions Head CT 08/17/17 0000 Signed Impressions: Service Date/Time: August 19:36 - CONCLUSION: Atrophy and prominent white matter disease slightly asymmetric in the right frontal region as described above. Tulio Jose MD Objective Remarks GENERAL: Well-nourished, well-developed elderly male patient in [facility]. SKIN: Warm and dry. No rash. HEENT: Normocephalic. Atraumatic.Pupils equal and round. Mucous membranes pink and moist. NECK: Supple. Trachea midline. CARDIOVASCULAR: Regular rate and rhythm. S1, S2 noted. No murmur appreciated. RESPIRATORY: No accessory muscle use. Clear to auscultation. Breath sounds equal bilaterally. GASTROINTESTINAL: Abdomen soft, non-tender, nondistended. Normoactive bowel sounds x4. MUSCULOSKELETAL: No obvious deformities. Extremities without clubbing, cyanosis , or edema. NEUROLOGICAL: Awake and alert. No obvious cranial nerve deficits. Motor grossly within normal limits. Normal speech. Medications and IVs Current Medications Medications (Trade) Dose Ordered Sig/Britney Route Start Time Stop Time Status Last Admin (Norvasc) 5 mg DAILY PO 08/18/17 09:00 08/25/17 08:41 (Proscar) 5 mg DAILY PO 08/18/17 09:00 08/25/17 08:42 (Flomax) 0.4 mg HS PO 08/18/17 21:00 08/25/17 20:30 (Tylenol) 650 mg Q4H PRN PO 08/17/17 23:00 08/19/17 05:25 (Milk Of Magnesia Liq) 30 ml DAILY PRN PO 08/17/17 23:00 (Mag-Al Plus Susp Liq) 30 ml Q6H PRN PO 08/17/17 23:00 (D50w (Vial) Inj) 50 ml UNSCH PRN IV PUSH 08/17/17 23:00 (Glucagon Inj) 1 mg UNSCH PRN OTHER 08/17/17 23:00 (NovoLOG SUPPLEMENTAL SCALE) 1 ACHS SLIDING SCALE SQ 08/18/17 08:00 08/25/17 20:37 (Melatonin) 5 mg HS PRN PO 08/17/17 23:00 Future hold 08/25/17 20:30 (Atarax) 50 mg Q6H PRN PO 08/18/17 11:00 08/26/17 01:06 (Desyrel) 50 mg HS PO 08/18/17 21:00 08/25/17 20:30 (Levemir Inj) 10 units BIDAC SQ 08/19/17 16:00 08/25/17 16:00 (Lopressor) 50 mg BID PO 08/19/17 21:00 08/25/17 08:41 (Ecotrin Ec) 81 mg DAILY PO 08/20/17 09:00 08/25/17 08:42 (SEROquel) 25 mg TID@1200,1700,2200 PO 08/22/17 12:00 08/25/17 20:31 (NovoLOG INJ) 3 units DAILY@1200 SQ 08/24/17 12:00 08/25/17 11:36 A/P Problem List: (1) Dementia ICD Code: F03.90 - Unspecified dementia without behavioral disturbance (2) BPH (benign prostatic hyperplasia) ICD Code: N40.0 - Benign prostatic hyperplasia without lower urinary tract symptoms (3) Diabetes mellitus ICD Code: E11.9 - Type 2 diabetes mellitus without complications (4) HTN (hypertension) ICD Code: I10 - Essential (primary) hypertension (5) Decreased GFR ICD Code: R94.4 - Abnormal results of kidney function studies Assessment and Plan Alzheimer/dementia Rossi He acted following suicidal statements to home physical therapist - Continue treatment by psychiatry team Hypertension, controlled - Continue Norvasc 5 mg daily, and metoprolol 50 mg bid Diabetes 2, uncontrolled - Hemoglobin A1c 10 - Insulin sliding scale low dose. - Levemir 10 units bid, continue to hold metformin due to decreased GFR - Continue 1800 ADA diet, with bedtime snack. - Monitor glucose trend - blood glucoses noted to be elevated after lunch, added Novolog 3u at lunchtime in addition to SSI, blood sugars improving Decreased GFR - Daughter and patient denies any known renal history. - Renal function slightly improved, continue glycemic control with insulin - Avoid nephrotoxic agents. BPH - Continue Flomax 0.4 mg - Episode of incontinence noted, urine culture with >15-100,000 mixed barry, probably contaminated. - Patient has been afebrile and asymptomatic, last WBC count normal ? Stroke - CT brain completed 08/17 reviewed, atrophy and prominent white matter disease slightly asymmetric in the right frontal region, possibility of an acute or subacute ischemia should be entertained, no evidence of hemorrhage, mass or fractures. - Patient with no residual weakness on exam - Continue low dose ASA 81 DVT Prophylaxis: patient is ambulatory Problem Qualifiers (1) Diabetes mellitus: Karina Hays PA-C Aug 26, 2017 3:44 pm
[2017-08-26 18:00] VITALS: BP 146/76; PULSE 101; RESP 20; TEMP 98; O2SAT 94
[2017-08-26] MEDS: TAMSULOSIN HCL 0.4 MG CAP PO SCH (20:38)
[2017-08-26] MEDS: traZODone HCL 50 MG TAB PO SCH (20:38)
[2017-08-27 06:00] VITALS: BP 100/53; PULSE 74; RESP 16; TEMP 98; O2SAT 96
[2017-08-27] MEDS: INSULIN DETEMIR 100 UNITS/ML VIAL SQ SCH ×2 (06:45→16:00)
[2017-08-27] MEDS: INSULIN ASPART SUPPLEMENTAL SCALE SQ SCH ×4 (07:37→21:09)
[2017-08-27] MEDS: amLODIPine BESYLATE 5 MG TAB PO SCH (09:00)
[2017-08-27] MEDS: METOPROLOL TARTRATE 50 MG TAB PO SCH ×2 (09:00→21:08)
[2017-08-27] MEDS: ASPIRIN EC 81 MG TABEC PO SCH (09:16)
[2017-08-27] MEDS: FINASTERIDE 5 MG TAB PO SCH (09:19)
[2017-08-27] MEDS: INSULIN ASPART 1,000 UNITS/10 ML VIAL SQ SCH (11:43)
--- NOTE | 2017-08-27 11:57 | HHI.PR ---
Subjective Remarks Patient in nad. At the margin of the bed. Says she wants to go home to his . Says she is eating well. His BS was noted into a lower side. No sweating, tremors. No n/v/d/c. Denies chest pain or sob. No fever or chills. Objective Vitals Vital Signs Date Time Temp Pulse Resp B/P (MAP) Pulse Ox O2 Delivery O2 Flow Rate FiO2 08/27/17 06:00 98.0 74 16 100/53 (69) 96 08/26/17 18:00 98.0 101 20 146/76 (99) 94 I/O 08/26/17 08/26/17 08/26/17 08/27/17 08/27/17 08/27/17 07:00 15:00 23:00 07:00 15:00 23:00 Intake Total 240 ml 1140 ml 0 ml 240 ml Balance 240 ml 1140 ml 0 ml 240 ml Intake Oral 240 ml 1140 ml 0 ml 240 ml # Voids 1 1 2 3 Imaging Last Impressions Head CT 08/17/17 0000 Signed Impressions: Service Date/Time: August 19:36 - CONCLUSION: Atrophy and prominent white matter disease slightly asymmetric in the right frontal region as described above. Tulio Jose MD Objective Remarks GENERAL: Well-nourished, well-developed elderly male patient in [facility]. SKIN: Warm and dry. No rash. CARDIOVASCULAR: Regular rate and rhythm. S1, S2 noted. No murmur appreciated. RESPIRATORY: No accessory muscle use. Clear to auscultation. Breath sounds equal bilaterally. GASTROINTESTINAL: Abdomen soft, non-tender, nondistended. Normoactive bowel sounds x4. MUSCULOSKELETAL: No obvious deformities. Extremities without clubbing, cyanosis , or edema. NEUROLOGICAL: Awake and alert. No obvious cranial nerve deficits. Motor grossly within normal limits. Normal speech. A/P Problem List: (1) Dementia ICD Code: F03.90 - Unspecified dementia without behavioral disturbance (2) BPH (benign prostatic hyperplasia) ICD Code: N40.0 - Benign prostatic hyperplasia without lower urinary tract symptoms (3) Diabetes mellitus ICD Code: E11.9 - Type 2 diabetes mellitus without complications (4) HTN (hypertension) ICD Code: I10 - Essential (primary) hypertension (5) Decreased GFR ICD Code: R94.4 - Abnormal results of kidney function studies Assessment and Plan Alzheimer/dementia - He acted following suicidal statements to home physical therapist - Continue treatment by psychiatry team Hypertension, controlled - Continue Norvasc 5 mg daily, and metoprolol 50 mg bid Diabetes 2, uncontrolled - Hemoglobin A1c 10 - Insulin sliding scale low dose. - DC Levemir 10 units bid as patient noted with low BS, continue to hold metformin due to decreased GFR - Continue 1800 ADA diet, with bedtime snack. - Monitor glucose trend - blood glucoses noted to be elevated after lunch, added Novolog 3u at lunchtime in addition to SSI, blood sugars improving Decreased GFR - Per Daughter and patient denies any known renal history. - Renal function slightly improved, continue glycemic control with insulin - Avoid nephrotoxic agents. BPH - Continue Flomax 0.4 mg - Episode of incontinence noted, urine culture with >15-100,000 mixed barry, probably contaminated. - Patient has been afebrile and asymptomatic, last WBC count normal Stroke - CT brain completed 08/17 reviewed, atrophy and prominent white matter disease slightly asymmetric in the right frontal region, possibility of an acute or subacute ischemia should be entertained, no evidence of hemorrhage, mass or fractures. - Patient with no residual weakness on exam - Continue low dose ASA 81 DVT Prophylaxis: patient is ambulatory Problem Qualifiers (1) Diabetes mellitus: Farida Abel MD Aug 27, 2017 11:57
[2017-08-27] MEDS: QUEtiapine FUMARATE 25 MG TAB PO SCH ×3 (12:12→21:09)
[2017-08-27 17:00] VITALS: BP 133/68; PULSE 113; RESP 20; TEMP 97.6; O2SAT 97
--- NOTE | 2017-08-27 17:06 | HHI.PYPN ---
Subjective Chief Complaint: patient demented made suicidal statements Remarks Pt seen and discussed with staff. No agitation or aggression today. He has been cooperative with medications and treatment. He slept well last night. No SI/HI He is anxious and states that he doesn't want to get anyone in trouble. No aggression. Mental Status Examination Appearance: Appropriate Consciousness: Alert, Asleep (but arousable) Orientation: Person (vaguely), Place Motor Activity: Other (unable ascertain patient sitting down in day room will get PT assessment) Speech: Hesitant Language: Other (disorganized) Fund of Knowledge: Poor Attention and Concentration: Easily Distracted Memory: Impaired Mood: Anxious Affect: Anxious Thought Process & Associations: Disorganized Thought Content: Other (disorganized) Hallucination Type: None Delusion Type: None Suicidal Ideation: No Suicidal Plan: No Suicidal Intention: No Homicidal Ideation: No Homicidal Plan: No Homicidal Intention: No Insight: Poor Judgment: Poor Results Labs Date/Time Source Procedure Growth Status 08/18/17 15:21 Urine Clean Catch Urine Culture - Final 50-100,000 CFU/ML MIXED JUAN... Complete Vitals/IOs Vital Signs Date Time Temp Pulse Resp B/P (MAP) Pulse Ox O2 Delivery O2 Flow Rate FiO2 08/27/17 06:00 98.0 74 16 100/53 (69) 96 Intake and Output 08/27/17 08/27/17 08/28/17 08:00 16:00 00:00 Intake Total 240 ml 240 ml Balance 240 ml 240 ml Assessment & Plan Problem List: (1) OTHER ALZHEIMER'S DISEASE ICD Codes: G30.8 - OTHER ALZHEIMER'S DISEASE (2) DEMENTIA IN OTH DISEASES CLASSD ELSWHR W BEHAVIORAL DISTURB ICD Codes: F02.81 - DEMENTIA IN OTH DISEASES CLASSD ELSWHR W BEHAVIORAL DISTURB Assessment & Plan Continue current tx plan Estimated LOS: days Justification for Cont. Inpt. risk of decompensation Request HC Surrog/Guard Advoc?: Yes Birdie Leggett MD Aug 27, 2017 17:06
[2017-08-27] MEDS: TAMSULOSIN HCL 0.4 MG CAP PO SCH (21:08)
[2017-08-27] MEDS: traZODone HCL 50 MG TAB PO SCH (21:09)
[2017-08-27] MEDS: hydrOXYzine HCL 50 MG TAB PO PRN (21:48)
[2017-08-27] MEDS ORDERED: HALOPERIDOL LACTATE 5 MG/ML AMP IM ONE (23:15)
[2017-08-27] MEDS ORDERED: LORazepam 2 MG/ML VIAL IM ONE (23:15)
[2017-08-28] MEDS: INSULIN ASPART SUPPLEMENTAL SCALE SQ SCH ×4 (08:00→21:00)
[2017-08-28] MEDS: METOPROLOL TARTRATE 50 MG TAB PO SCH ×2 (09:01→21:00)
[2017-08-28] MEDS: FINASTERIDE 5 MG TAB PO SCH (09:01)
[2017-08-28] MEDS: ASPIRIN EC 81 MG TABEC PO SCH (09:01)
[2017-08-28] MEDS: amLODIPine BESYLATE 5 MG TAB PO SCH (09:01)
[2017-08-28] MEDS: QUEtiapine FUMARATE 25 MG TAB PO SCH ×3 (11:44→22:00)
--- NOTE | 2017-08-28 15:51 | HHI.PYPN ---
Subjective Chief Complaint: patient demented made suicidal statements Remarks Patient seen in his room with floor staff, chart reviewed, patient compliant medication. Patient calm with me though continues diffusely confused disoriented. However it appears she has had some episodes of misbehavior towards the evening. For now continue treatment Review of Systems Except as stated in HPI: all other systems reviewed are Neg Mental Status Examination Appearance: Appropriate Consciousness: Alert, Asleep (but arousable) Orientation: Person (vaguely), Place Motor Activity: Other (unable ascertain patient sitting down in day room will get PT assessment) Speech: Hesitant Language: Other (disorganized) Fund of Knowledge: Poor Attention and Concentration: Easily Distracted Memory: Impaired Mood: Anxious Affect: Anxious Thought Process & Associations: Disorganized Thought Content: Other (disorganized) Hallucination Type: None Delusion Type: None Suicidal Ideation: No Suicidal Plan: No Suicidal Intention: No Homicidal Ideation: No Homicidal Plan: No Homicidal Intention: No Insight: Poor Judgment: Poor Results Labs Date/Time Source Procedure Growth Status 08/18/17 15:21 Urine Clean Catch Urine Culture - Final 50-100,000 CFU/ML MIXED JUAN... Complete Vitals/IOs Vital Signs Date Time Temp Pulse Resp B/P (MAP) Pulse Ox O2 Delivery O2 Flow Rate FiO2 08/27/17 17:00 97.6 113 20 133/68 (89) 97 Intake and Output 08/28/17 08/28/17 08/29/17 08:00 16:00 00:00 Intake Total 120 ml Balance 120 ml Assessment & Plan Problem List: (1) OTHER ALZHEIMER'S DISEASE ICD Codes: G30.8 - OTHER ALZHEIMER'S DISEASE (2) DEMENTIA IN OTH DISEASES CLASSD ELSWHR W BEHAVIORAL DISTURB ICD Codes: F02.81 - DEMENTIA IN OTH DISEASES CLASSD ELSWHR W BEHAVIORAL DISTURB Assessment & Plan Estimated LOS: days patient continues demented confused with at times some's behavior towards evening compliant medications Justification for Cont. Inpt. With this time patient will decompensate and placed in a lower level of care Discharge Planning Placement may become problematic Request HC Surrog/Guard Advoc?: Yes Sanford Patel MD Aug 28, 2017 15:51
--- NOTE | 2017-08-28 17:21 | HHI.PR ---
Subjective Remarks Seen earlier today. He denies any chest apni or sob. He is found in another room and not his room sitting in the chair. Patient urinated on himself. He feels a little embarrassed. Otherwise no complaints. Eating well BS is better controlled. Objective Vitals I/O 08/27/17 08/27/17 08/27/17 08/28/17 08/28/17 08/28/17 07:00 15:00 23:00 07:00 15:00 23:00 Intake Total 0 ml 480 ml 630 ml 120 ml Balance 0 ml 480 ml 630 ml 120 ml Intake Oral 0 ml 480 ml 630 ml 120 ml # Voids 3 # Bowel Movements 1 Imaging Last Impressions Head CT 08/17/17 0000 Signed Impressions: Service Date/Time: August 19:36 - CONCLUSION: Atrophy and prominent white matter disease slightly asymmetric in the right frontal region as described above. Tulio Jose MD Objective Remarks GENERAL: Well-nourished, well-developed elderly male patient in [facility]. SKIN: Warm and dry. No rash. CARDIOVASCULAR: Regular rate and rhythm. S1, S2 noted. No murmur appreciated. RESPIRATORY: No accessory muscle use. Clear to auscultation. Breath sounds equal bilaterally. GASTROINTESTINAL: Abdomen soft, non-tender, nondistended. Normoactive bowel sounds x4. MUSCULOSKELETAL: No obvious deformities. Extremities without clubbing, cyanosis , or edema. NEUROLOGICAL: Awake and alert. No obvious cranial nerve deficits. Motor grossly within normal limits. Normal speech. A/P Problem List: (1) Dementia ICD Code: F03.90 - Unspecified dementia without behavioral disturbance (2) BPH (benign prostatic hyperplasia) ICD Code: N40.0 - Benign prostatic hyperplasia without lower urinary tract symptoms (3) Diabetes mellitus ICD Code: E11.9 - Type 2 diabetes mellitus without complications (4) HTN (hypertension) ICD Code: I10 - Essential (primary) hypertension (5) Decreased GFR ICD Code: R94.4 - Abnormal results of kidney function studies Assessment and Plan Alzheimer/dementia - He acted following suicidal statements to home physical therapist - Continue treatment by psychiatry team Hypertension, controlled - Continue Norvasc 5 mg daily, and metoprolol 50 mg bid Diabetes 2, uncontrolled - Hemoglobin A1c 10 - Insulin sliding scale low dose. - DC Levemir 10 units bid as patient noted with low BS, continue to hold metformin due to decreased GFR - Continue 1800 ADA diet, with bedtime snack. - Monitor glucose trend - blood glucoses noted to be elevated after lunch, added Novolog 3u at lunchtime in addition to SSI, blood sugars improving Decreased GFR - Per Daughter and patient denies any known renal history. - Renal function slightly improved, continue glycemic control with insulin - Avoid nephrotoxic agents. BPH - Continue Flomax 0.4 mg - Episode of incontinence noted, urine culture with >15-100,000 mixed barry, probably contaminated. - Patient has been afebrile and asymptomatic, last WBC count normal Stroke - CT brain completed 08/17 reviewed, atrophy and prominent white matter disease slightly asymmetric in the right frontal region, possibility of an acute or subacute ischemia should be entertained, no evidence of hemorrhage, mass or fractures. - Patient with no residual weakness on exam - Continue low dose ASA 81 DVT Prophylaxis: patient is ambulatory Problem Qualifiers (1) Diabetes mellitus: Farida Abel MD Aug 28, 2017 17:21
[2017-08-28 17:52] VITALS: BP 115/56; PULSE 67; RESP 18; TEMP 97.6; O2SAT 99
[2017-08-28] MEDS: traZODone HCL 50 MG TAB PO SCH (21:00)
[2017-08-28] MEDS: TAMSULOSIN HCL 0.4 MG CAP PO SCH (21:00)
[2017-08-29] MEDS: QUEtiapine FUMARATE 25 MG TAB PO SCH ×4 (00:11→20:39)
[2017-08-29] MEDS: traZODone HCL 50 MG TAB PO SCH ×2 (00:13→20:39)
[2017-08-29 06:15] VITALS: BP 99/51; PULSE 59; RESP 17; TEMP 98.3; O2SAT 98
[2017-08-29] MEDS: INSULIN ASPART SUPPLEMENTAL SCALE SQ SCH ×4 (08:00→21:12)
[2017-08-29] MEDS: amLODIPine BESYLATE 5 MG TAB PO SCH (08:42)
[2017-08-29] MEDS: FINASTERIDE 5 MG TAB PO SCH (08:42)
[2017-08-29] MEDS: ASPIRIN EC 81 MG TABEC PO SCH (08:42)
[2017-08-29] MEDS: METOPROLOL TARTRATE 50 MG TAB PO SCH ×2 (08:42→20:39)
--- NOTE | 2017-08-29 12:33 | HHI.PYPN ---
Subjective Chief Complaint: patient demented made suicidal statements Remarks Patient seen in his room with nurse Sea, chart review, patient compliant medications. Patient calm cooperative today continues diffusely confused and disoriented. So father no behavioral problems today. Review of Systems Except as stated in HPI: all other systems reviewed are Neg Mental Status Examination Appearance: Appropriate Consciousness: Alert, Asleep (but arousable) Orientation: Person (vaguely), Place Motor Activity: Other (unable ascertain patient sitting down in day room will get PT assessment) Speech: Hesitant Language: Other (disorganized) Fund of Knowledge: Poor Attention and Concentration: Easily Distracted Memory: Impaired Mood: Anxious Affect: Anxious Thought Process & Associations: Disorganized Thought Content: Other (disorganized) Hallucination Type: None Delusion Type: None Suicidal Ideation: No Suicidal Plan: No Suicidal Intention: No Homicidal Ideation: No Homicidal Plan: No Homicidal Intention: No Insight: Poor Judgment: Poor Results Labs Date/Time Source Procedure Growth Status 08/18/17 15:21 Urine Clean Catch Urine Culture - Final 50-100,000 CFU/ML MIXED JUAN... Complete Vitals/IOs Vital Signs Date Time Temp Pulse Resp B/P (MAP) Pulse Ox O2 Delivery O2 Flow Rate FiO2 08/29/17 06:15 98.3 59 17 99/51 (67) 98 Assessment & Plan Problem List: (1) OTHER ALZHEIMER'S DISEASE ICD Codes: G30.8 - OTHER ALZHEIMER'S DISEASE (2) DEMENTIA IN OTH DISEASES CLASSD ELSWHR W BEHAVIORAL DISTURB ICD Codes: F02.81 - DEMENTIA IN OTH DISEASES CLASSD ELSWHR W BEHAVIORAL DISTURB Assessment & Plan Estimated LOS: days patient continues confused disoriented, though no behavior problems today. Compliant medications. For Now continue to work on placement issues Justification for Cont. Inpt. At this time patient decompensated placed in a lower level of care Discharge Planning Placement remain somewhat problematic Request HC Surrog/Guard Advoc?: Yes Sanford Patel MD Aug 29, 2017 12:33
--- NOTE | 2017-08-29 15:39 | HHI.PR ---
Subjective Remarks In bed says she ate a lot of lunch. No nausea or vomiting, no diarrhea or constipation. Denies cp, sob. Objective Vitals Vital Signs Date Time Temp Pulse Resp B/P (MAP) Pulse Ox O2 Delivery O2 Flow Rate FiO2 08/29/17 06:15 98.3 59 17 99/51 (67) 98 08/28/17 17:52 97.6 67 18 115/56 (75) 99 I/O 08/28/17 08/28/17 08/28/17 08/29/17 08/29/17 08/29/17 07:00 15:00 23:00 07:00 15:00 23:00 Intake Total 120 ml 480 ml 320 ml Balance 120 ml 480 ml 320 ml Intake Oral 120 ml 480 ml 320 ml # Voids 1 3 3 # Bowel Movements 1 1 Imaging Last Impressions Head CT 08/17/17 0000 Signed Impressions: Service Date/Time: August 19:36 - CONCLUSION: Atrophy and prominent white matter disease slightly asymmetric in the right frontal region as described above. Tulio Jose MD Objective Remarks GENERAL: Well-nourished, well-developed elderly male patient in [facility]. SKIN: Warm and dry. No rash. CARDIOVASCULAR: Regular rate and rhythm. S1, S2 noted. No murmur appreciated. RESPIRATORY: No accessory muscle use. Clear to auscultation. Breath sounds equal bilaterally. GASTROINTESTINAL: Abdomen soft, non-tender, nondistended. Normoactive bowel sounds x4. MUSCULOSKELETAL: No obvious deformities. Extremities without clubbing, cyanosis , or edema. NEUROLOGICAL: Awake and alert. No obvious cranial nerve deficits. Motor grossly within normal limits. Normal speech. A/P Problem List: (1) Dementia ICD Code: F03.90 - Unspecified dementia without behavioral disturbance (2) BPH (benign prostatic hyperplasia) ICD Code: N40.0 - Benign prostatic hyperplasia without lower urinary tract symptoms (3) Diabetes mellitus ICD Code: E11.9 - Type 2 diabetes mellitus without complications (4) HTN (hypertension) ICD Code: I10 - Essential (primary) hypertension (5) Decreased GFR ICD Code: R94.4 - Abnormal results of kidney function studies Assessment and Plan Alzheimer/dementia - He acted following suicidal statements to home physical therapist - Continue treatment by psychiatry team Hypertension, controlled - Continue Norvasc 5 mg daily, and metoprolol 50 mg bid Diabetes 2, uncontrolled - Hemoglobin A1c 10 - Insulin sliding scale low dose. - DC Levemir 10 units bid as patient noted with low BS, continue to hold metformin due to decreased GFR - Continue 1800 ADA diet, with bedtime snack. - Monitor glucose trend - blood glucoses noted to be elevated after lunch, added Novolog 3u at lunchtime in addition to SSI, blood sugars improving Decreased GFR - Per Daughter and patient denies any known renal history. - Renal function slightly improved, continue glycemic control with insulin - Avoid nephrotoxic agents. BPH - Continue Flomax 0.4 mg - Episode of incontinence noted, urine culture with >15-100,000 mixed barry, probably contaminated. - Patient has been afebrile and asymptomatic, last WBC count normal Stroke - CT brain completed 08/17 reviewed, atrophy and prominent white matter disease slightly asymmetric in the right frontal region, possibility of an acute or subacute ischemia should be entertained, no evidence of hemorrhage, mass or fractures. - Patient with no residual weakness on exam - Continue low dose ASA 81 DVT Prophylaxis: patient is ambulatory Discussed with the patient Problem Qualifiers (1) Diabetes mellitus: Farida Abel MD Aug 29, 2017 15:39
[2017-08-29 18:23] VITALS: BP 98/62; PULSE 62; RESP 18; TEMP 97.6; O2SAT 99
[2017-08-29] MEDS: TAMSULOSIN HCL 0.4 MG CAP PO SCH (20:39)
[2017-08-30] MEDS: MELATONIN 5 MG TAB PO PRN (01:55)
[2017-08-30 05:44] VITALS: BP 105/59; PULSE 71; RESP 17; TEMP 98.3; O2SAT 100
[2017-08-30] MEDS: INSULIN ASPART SUPPLEMENTAL SCALE SQ SCH ×4 (08:00→20:46)
[2017-08-30] MEDS: METOPROLOL TARTRATE 50 MG TAB PO SCH ×3 (08:09→20:44)
[2017-08-30] MEDS: ASPIRIN EC 81 MG TABEC PO SCH (08:09)
[2017-08-30] MEDS: FINASTERIDE 5 MG TAB PO SCH (08:09)
[2017-08-30] MEDS: amLODIPine BESYLATE 5 MG TAB PO SCH (08:09)
[2017-08-30] MEDS ORDERED: LORazepam 2 MG/ML VIAL ONE (09:28)
[2017-08-30] MEDS ORDERED: diphenhydrAMINE HCL 50 MG/ML VIAL IM STA (09:28)
[2017-08-30] MEDS ORDERED: LORazepam 2 MG/ML VIAL IM STA (09:28)
[2017-08-30] MEDS ORDERED: HALOPERIDOL LACTATE 5 MG/ML AMP ONE (09:29)
[2017-08-30] MEDS ORDERED: HALOPERIDOL LACTATE 5 MG/ML AMP IM ONE (09:30)
--- NOTE | 2017-08-30 11:52 | HHI.PYPN ---
Subjective Chief Complaint: patient demented made suicidal statements Remarks Patient seen in the day room. Chart reviewed. Patient compliant medication. Prior to my seeing patient he became out of control somewhat aggressive and intrusive. Necessitating an ETO of Haldol 5 mg Ativan 1 mg Benadryl 25 mg IM. Will increase scheduled Seroquel to 50 mg 3 times a day. I discussed this also with counselors. It appears her family does wish this gentleman to be returned home. They're financially quite limited in what they can afford and do. It appears the extended family is quite willing to assist in the care of that this man would need to to have a chance to be successful in the home placement Review of Systems Except as stated in HPI: all other systems reviewed are Neg Mental Status Examination Appearance: Appropriate Consciousness: Alert, Asleep (but arousable) Orientation: Person (vaguely), Place Motor Activity: Other (unable ascertain patient sitting down in day room will get PT assessment) Speech: Hesitant Language: Other (disorganized) Fund of Knowledge: Poor Attention and Concentration: Easily Distracted Memory: Impaired Mood: Anxious Affect: Anxious Thought Process & Associations: Disorganized Thought Content: Other (disorganized) Hallucination Type: None Delusion Type: None Suicidal Ideation: No Suicidal Plan: No Suicidal Intention: No Homicidal Ideation: No Homicidal Plan: No Homicidal Intention: No Insight: Poor Judgment: Poor Results Labs Date/Time Source Procedure Growth Status 08/18/17 15:21 Urine Clean Catch Urine Culture - Final 50-100,000 CFU/ML MIXED JUAN... Complete Vitals/IOs Vital Signs Date Time Temp Pulse Resp B/P (MAP) Pulse Ox O2 Delivery O2 Flow Rate FiO2 08/30/17 05:44 98.3 71 17 105/59 (74) 100 Intake and Output 08/30/17 08/30/17 08/31/17 08:00 16:00 00:00 Intake Total 240 ml Balance 240 ml Assessment & Plan Problem List: (1) OTHER ALZHEIMER'S DISEASE ICD Codes: G30.8 - OTHER ALZHEIMER'S DISEASE (2) DEMENTIA IN OTH DISEASES CLASSD ELSWHR W BEHAVIORAL DISTURB ICD Codes: F02.81 - DEMENTIA IN OTH DISEASES CLASSD ELSWHR W BEHAVIORAL DISTURB Assessment & Plan Estimated LOS: days patient continues demented and confused with some aggressive behaviors. Necessitating an ETO this morning. She medication adjustment of Justification for Cont. Inpt. At this time patient will decompensate or placed on a lower level of care Discharge Planning It appears family is wanting the patient to be returned home when he is stabilized. It appears to be significant financial hardship with his family Request HC Surrog/Guard Advoc?: Yes Sanford Patel MD Aug 30, 2017 11:52
[2017-08-30] MEDS: QUEtiapine FUMARATE 25 MG TAB PO SCH ×3 (12:00→21:52)
[2017-08-30 18:00] VITALS: BP 120/70; PULSE 60; RESP 16; TEMP 98.2; O2SAT 97
[2017-08-30] MEDS: TAMSULOSIN HCL 0.4 MG CAP PO SCH (20:45)
[2017-08-30] MEDS: traZODone HCL 50 MG TAB PO SCH (20:45)
[2017-08-30] MEDS: INSULIN DETEMIR 100 UNITS/ML VIAL SQ SCH (21:02)
--- NOTE | 2017-08-30 21:14 | HHI.PR ---
Subjective Remarks Seen earlier today. Patient ambulating in the hallways appears in nad. No n/v/d/c. Eating well. His BS is now elevated. Denies chest pain or sob. Objective Vitals Vital Signs Date Time Temp Pulse Resp B/P (MAP) Pulse Ox O2 Delivery O2 Flow Rate FiO2 08/30/17 18:00 98.2 60 16 120/70 (87) 97 08/30/17 05:44 98.3 71 17 105/59 (74) 100 I/O 08/29/17 08/29/17 08/29/17 08/30/17 08/30/17 08/30/17 07:00 15:00 23:00 07:00 15:00 23:00 Intake Total 320 ml 720 ml 0 ml 840 ml 240 ml Balance 320 ml 720 ml 0 ml 840 ml 240 ml Intake Oral 320 ml 720 ml 0 ml 840 ml 240 ml # Voids 3 3 2 1 3 # Bowel Movements 1 1 1 Objective Remarks GENERAL: Well-nourished, well-developed elderly male patient in [facility]. SKIN: Warm and dry. No rash. CARDIOVASCULAR: Regular rate and rhythm. S1, S2 noted. No murmur appreciated. RESPIRATORY: No accessory muscle use. Clear to auscultation. Breath sounds equal bilaterally. GASTROINTESTINAL: Abdomen soft, non-tender, nondistended. Normoactive bowel sounds x4. MUSCULOSKELETAL: No obvious deformities. Extremities without clubbing, cyanosis , or edema. NEUROLOGICAL: Awake and alert. No obvious cranial nerve deficits. Motor grossly within normal limits. Normal speech. A/P Problem List: (1) Dementia ICD Code: F03.90 - Unspecified dementia without behavioral disturbance (2) BPH (benign prostatic hyperplasia) ICD Code: N40.0 - Benign prostatic hyperplasia without lower urinary tract symptoms (3) Diabetes mellitus ICD Code: E11.9 - Type 2 diabetes mellitus without complications (4) HTN (hypertension) ICD Code: I10 - Essential (primary) hypertension (5) Decreased GFR ICD Code: R94.4 - Abnormal results of kidney function studies Assessment and Plan Alzheimer/dementia - He acted following suicidal statements to home physical therapist - Continue treatment by psychiatry team Hypertension, controlled - Continue Norvasc 5 mg daily, and metoprolol 50 mg bid Diabetes 2, uncontrolled and labile - Hemoglobin A1c 10 - Insulin sliding scale low dose. - Restart Levemir 5 units bid as patient noted with elevated BS, continue to hold metformin due to decreased GFR, can restart at DC - Continue 1800 ADA diet, with bedtime snack. - Monitor glucose trend - blood glucoses noted to be elevated after lunch, added Novolog 3u at lunchtime in addition to SSI, blood sugars improving Decreased GFR - Per Daughter and patient denies any known renal history. - Renal function slightly improved, continue glycemic control with insulin - Avoid nephrotoxic agents. BPH - Continue Flomax 0.4 mg - Episode of incontinence noted, urine culture with >15-100,000 mixed barry, probably contaminated. - Patient has been afebrile and asymptomatic, last WBC count normal Stroke - CT brain completed 08/17 reviewed, atrophy and prominent white matter disease slightly asymmetric in the right frontal region, possibility of an acute or subacute ischemia should be entertained, no evidence of hemorrhage, mass or fractures. - Patient with no residual weakness on exam - Continue low dose ASA 81 DVT Prophylaxis: patient is ambulatory Discussed with the patient Problem Qualifiers (1) Diabetes mellitus: Farida Abel MD Aug 30, 2017 21:14
[2017-08-31 05:48] VITALS: BP 118/72; PULSE 95; RESP 18; TEMP 97.2; O2SAT 96
[2017-08-31] MEDS: INSULIN ASPART SUPPLEMENTAL SCALE SQ SCH ×4 (07:31→20:52)
[2017-08-31 08:42] VITALS: BP 125/69
[2017-08-31] MEDS: amLODIPine BESYLATE 5 MG TAB PO SCH (08:43)
[2017-08-31] MEDS: FINASTERIDE 5 MG TAB PO SCH (08:43)
[2017-08-31] MEDS: METOPROLOL TARTRATE 50 MG TAB PO SCH ×2 (08:43→20:51)
[2017-08-31] MEDS: ASPIRIN EC 81 MG TABEC PO SCH (08:43)
[2017-08-31] MEDS: INSULIN DETEMIR 100 UNITS/ML VIAL SQ SCH ×2 (09:36→20:53)
[2017-08-31] MEDS: QUEtiapine FUMARATE 25 MG TAB PO SCH ×3 (11:32→21:37)
--- NOTE | 2017-08-31 12:58 | HHI.PYPN ---
Subjective Chief Complaint: patient demented made suicidal statements Remarks Patient seen in [place] with floor staff, chart reviewed, patient compliant medications. At the present time patient is calm cooperative and pleasant with me continues pleasantly confused and disoriented but no behavioral issues at this time. Patient remains problematic Review of Systems Except as stated in HPI: all other systems reviewed are Neg Mental Status Examination Appearance: Appropriate Consciousness: Alert, Asleep (but arousable) Orientation: Person (vaguely), Place Motor Activity: Other (unable ascertain patient sitting down in day room will get PT assessment) Speech: Hesitant Language: Other (disorganized) Fund of Knowledge: Poor Attention and Concentration: Easily Distracted Memory: Impaired Mood: Anxious Affect: Anxious Thought Process & Associations: Disorganized Thought Content: Other (disorganized) Hallucination Type: None Delusion Type: None Suicidal Ideation: No Suicidal Plan: No Suicidal Intention: No Homicidal Ideation: No Homicidal Plan: No Homicidal Intention: No Insight: Poor Judgment: Poor Results Labs Date/Time Source Procedure Growth Status 08/18/17 15:21 Urine Clean Catch Urine Culture - Final 50-100,000 CFU/ML MIXED JUAN... Complete Vitals/IOs Vital Signs Date Time Temp Pulse Resp B/P (MAP) Pulse Ox O2 Delivery O2 Flow Rate FiO2 08/31/17 08:42 125/69 (87) 08/31/17 05:48 97.2 95 18 96 Assessment & Plan Problem List: (1) OTHER ALZHEIMER'S DISEASE ICD Codes: G30.8 - OTHER ALZHEIMER'S DISEASE (2) DEMENTIA IN OTH DISEASES CLASSD ELSWHR W BEHAVIORAL DISTURB ICD Codes: F02.81 - DEMENTIA IN OTH DISEASES CLASSD ELSWHR W BEHAVIORAL DISTURB Assessment & Plan Estimated LOS: days patient continues demented confused, no behavior problems at the present time, compliant medications. Justification for Cont. Inpt. At the present time patient states placed on the lower level of care Discharge Planning Continue to work with family to find appropriate placement Request HC Surrog/Guard Advoc?: Yes Sanford Patel MD Aug 31, 2017 12:58
--- NOTE | 2017-08-31 16:00 | HHI.PR ---
Subjective Remarks Follow-up visit dementia, BPH, DM 2, HTN. Patient seen and examined today walking around the hallway. Patient states he is doing well. Denies pain or discomfort. Denies chest pain, palpitations, headaches, dizziness. Denies fevers, chills, nausea, vomiting, diarrhea. Denies dysuria. Objective Vitals Vital Signs Date Time Temp Pulse Resp B/P (MAP) Pulse Ox O2 Delivery O2 Flow Rate FiO2 08/31/17 08:42 125/69 (87) 08/31/17 05:48 97.2 95 18 118/72 (87) 96 08/30/17 18:00 98.2 60 16 120/70 (87) 97 I/O 08/30/17 08/30/17 08/30/17 08/31/17 08/31/17 08/31/17 07:00 15:00 23:00 07:00 15:00 23:00 Intake Total 0 ml 840 ml 1110 ml 240 ml Balance 0 ml 840 ml 1110 ml 240 ml Intake Oral 0 ml 840 ml 1110 ml 240 ml # Voids 1 3 2 1 # Bowel Movements 1 Imaging Last Impressions Head CT 08/17/17 0000 Signed Impressions: Service Date/Time: August 19:36 - CONCLUSION: Atrophy and prominent white matter disease slightly asymmetric in the right frontal region as described above. Tulio Jose MD Objective Remarks GENERAL: This is a well-nourished, well-developed patient, in no apparent distress. SKIN: Warm and dry. HEENT: Normocephalic. Pupils equal round and reactive. Nose without bleeding. Airway patent. NECK: Trachea midline. CARDIOVASCULAR: Regular rate and rhythm without murmurs, gallops, or rubs. RESPIRATORY: Clear to auscultation. Breath sounds equal bilaterally. No wheezes , rales, or rhonchi. GASTROINTESTINAL: Abdomen soft, non-tender, nondistended. Bowel Sounds normoactive x4. MUSCULOSKELETAL: Extremities without clubbing, cyanosis, or edema. NEUROLOGICAL: Awake and alert. Oriented to person. No focal neuro deficit. Moves all extremities. Normal speech. A/P Problem List: (1) Dementia ICD Code: F03.90 - Unspecified dementia without behavioral disturbance (2) BPH (benign prostatic hyperplasia) ICD Code: N40.0 - Benign prostatic hyperplasia without lower urinary tract symptoms (3) Diabetes mellitus ICD Code: E11.9 - Type 2 diabetes mellitus without complications (4) HTN (hypertension) ICD Code: I10 - Essential (primary) hypertension (5) Decreased GFR ICD Code: R94.4 - Abnormal results of kidney function studies Assessment and Plan Patient is an 82-year-old male with past medical history significant for dementia, BPH, diabetes, and hypertension admitted to inpatient psychiatry under a He act following suicidal statements to home physical therapist. Alzheimer/dementia - He acted following suicidal statements to home physical therapist -Managed by psychiatry team Hypertension, controlled - Continue Norvasc 5 mg daily, and metoprolol 50 mg daily, continue monitoring BP Diabetes 2, uncontrolled - Hemoglobin A1c 10 - Insulin sliding scale low dose. - Levemir 5 units twice a day, continue to hold metformin due to decreased GFR - Continue 1800 ADA diet. Provide midnight snacks. - Monitor glucose trend. Occasional spikes in blood sugar. Increase Levemir 7 units BID. We'll consider starting either Januvia or Actos. Possible CKD, possibly secondary to diabetic nephropathy - Daughter denies any known renal history. - Creatinine 1.24 --->0.99 -->1.16 - Avoid nephrotoxic agents. BPH - Continue Flomax 0.4 mg - Episode of incontinence noted, UA ordered and sent - Patient has been afebrile, WBC count this morning normal ? Stroke - CT brain completed 08/17 reviewed, atrophy and prominent white matter disease slightly asymmetric in the right frontal region, possibility of an acute or subacute ischemia should be entertained, no evidence of hemorrhage, mass or fractures. - Patient with no residual weakness noted - ASA 81 DVT prophylaxis-patient ambulating Problem Qualifiers (1) Diabetes mellitus: Jose Ramon Stacy Aug 31, 2017 16:00
[2017-08-31 17:50] VITALS: BP 117/57; PULSE 76; RESP 18; TEMP 97.6; O2SAT 96
[2017-08-31] MEDS: TAMSULOSIN HCL 0.4 MG CAP PO SCH (20:51)
[2017-08-31] MEDS: traZODone HCL 50 MG TAB PO SCH (20:51)
[2017-09-01 05:27] VITALS: BP 123/60; PULSE 82; RESP 16; TEMP 97; O2SAT 97
[2017-09-01] MEDS: INSULIN ASPART SUPPLEMENTAL SCALE SQ SCH ×2 (07:24→12:00)
[2017-09-01] MEDS ORDERED: FINA5TAB2 PO (09:17)
[2017-09-01] MEDS ORDERED: TAMS5CAP PO (09:17)
[2017-09-01] MEDS ORDERED: TRAZ50TA12 PO (09:17)
[2017-09-01] MEDS ORDERED: METO-309 PO (09:17)
[2017-09-01] MEDS ORDERED: AMLO5TAB2 PO (09:17)
[2017-09-01] MEDS ORDERED: ECASA81 PO (09:17)
[2017-09-01] MEDS ORDERED: LEVEMIR SQ (09:17)
[2017-09-01] MEDS ORDERED: SERO50TA PO (09:17)
[2017-09-01] MEDS: FINASTERIDE 5 MG TAB PO SCH (09:21)
[2017-09-01] MEDS: amLODIPine BESYLATE 5 MG TAB PO SCH (09:21)
[2017-09-01] MEDS: ASPIRIN EC 81 MG TABEC PO SCH (09:21)
[2017-09-01] MEDS: METOPROLOL TARTRATE 50 MG TAB PO SCH (09:21)
[2017-09-01] MEDS: INSULIN DETEMIR 100 UNITS/ML VIAL SQ SCH (09:22)
--- NOTE | 2017-09-01 09:24 | HHI.DS ---
Psychiatry Discharge Summary Inpatient Psychiatric care?: Yes Advance Directive: No Reason Not Provided: Due to Patient Condition Mental Health AdvanceDirective: No Health Care Proxy: No Admission Admission Date Aug 17, 2017 at 22:48 Admission Diagnosis: (1) DEMENTIA IN OTH DISEASES CLASSD ELSWHR W BEHAVIORAL DISTURB ICD Code: F02.81 - DEMENTIA IN OTH DISEASES CLASSD ELSWHR W BEHAVIORAL DISTURB (2) OTHER ALZHEIMER'S DISEASE ICD Code: G30.8 - OTHER ALZHEIMER'S DISEASE Brief History Patient is an 82-year-old male comes here under He act signed by the [facility]'s office dated 08/17/17 at 0349 hours that documented reviewed the essentially stating. During a therapy session Noel Gilliland stated he wanted to kill himself because of frustration. Piper Talat is bouts of Noel Gilliland said he has made statements like this in the past. Noel Gilliland is currently being treated for dementia. It appears the patient lives with his . They've has been suffering from dementia for next Monday. Of time. The rest sleep had a stroke was hospitalized at [facility] and released about 2-3 days ago with home health rehabilitation. It is during one of these visits that the statement was made. The rehabilitation nurse call the patient's physician who called the police leading to the He act in his admission to this unit. And toxicology was not drawn in the ED. Though blood alcohol level was negative. At the present time patient sitting quietly in the day room nurse dilip she present throughout session. He is alert oriented to his name only. Is not no the location date time or situation. Is with his . Though he is calling this place my home (referring to me personally). It appears there is no prior psychiatric contact hospitalization psychotropic medications. As mentioned patient does little his it appears there is no adult daughter who lives nearby who is involved with them. Present time patient does meet criteria for acute inpatient psychiatric hospitalization under the Eh act. I'll do first opinion request second opinion. I feel he has no capacity at this time thus I'll ask for healthcare surrogate and guardian advocate. We'll continue his medications with the med reconciliation. We will attempt to arrange a family meeting for Monday 08/21. There is notation in the psych screeners note that placement may become important to family . Tobacco Use In Past 30 Days: No Tobacco Past 30 Days Alcohol Use: Never Hospital Course Patient's hospital course was fairly uneventful. He show compliance with his medications. The underlying dementia confusion persisted. He did have episodes of sundowning mild increased irritability early in the hospitalization related to visits from family and he remaining overall they went home. Chloride his behaviors have calm. Is now calm and pleasant though at times needing redirection. He does denies suicidality denies voices. Continues to wish return home with his family. Counselors have talked with patient's family they do wish him home also it appears she has a very supportive extended family and they are all willing to join together to organize appropriate monitoring and care for this gentleman in the home. Thus will discharge patient home today with Rx 1 month. We'll make a home health care referral for both a psychiatric nurse and for PT and OT assessment also for follow-up with her primary care related to patient's diabetes and other medical issues Results Blood Pressure 123 / 60 Vital Signs Date Time Temp Pulse Resp B/P (MAP) Pulse Ox O2 Delivery O2 Flow Rate FiO2 09/01/17 05:27 97.0 82 16 123/60 (81) 97 Laboratory Results Test 08/18/17 08:28 Cholesterol Level 133 MG/DL (120-200) HDL Cholesterol 48.9 MG/DL (40.0-60.0) Hemoglobin A1c 10.0 % (4.3-6.0) LDL Cholesterol 63 MG/DL (0-99) Triglycerides Level 104 MG/DL (42-150) Summary of Procedures None done Imaging Last Impressions Head CT 08/17/17 0000 Signed Impressions: Service Date/Time: August 19:36 - CONCLUSION: Atrophy and prominent white matter disease slightly asymmetric in the right frontal region as described above. Tulio Jose MD Pending results at discharge: No Medications # of Antipsychotic meds at D/C: 1 Approp Antipsych med options 1 - Minimum of three failed multiple trials of monotherapy. 2 - Documented plan to taper to monotherapy due to previous use of multiple meds OR cross-taper in progress at D/C. 3 - Documentation of augmentation of Clozapine. 4 - Justification other than those listed in allowable values 1-3, document here : Discharge Discharge Date: Sep 01, 2017 Discharge Diagnosis: (1) DEMENTIA IN OTH DISEASES CLASSD ELSWHR W BEHAVIORAL DISTURB Diagnosis: Principal ICD Code: F02.81 - DEMENTIA IN OTH DISEASES CLASSD ELSWHR W BEHAVIORAL DISTURB (2) OTHER ALZHEIMER'S DISEASE Diagnosis: Principal ICD Code: G30.8 - OTHER ALZHEIMER'S DISEASE Pt Condition on Discharge: Stable Discharge Disposition: Discharge Home Discharge Instructions Diet Instructions: As Tolerated, No Restrictions Activities you can perform: Regular-No Restrictions Scheduled Appointment: refer home healthcare psychiatric nursing staff and also refer PT and OT assessment Discharge Time > 30 minutes Mental Status Examination Appearance: Appropriate Consciousness: Alert, Asleep (but arousable) Orientation: Person (vaguely), Place Motor Activity: Other (unable ascertain patient sitting down in day room will get PT assessment) Speech: Hesitant Language: Other (disorganized) Fund of Knowledge: Poor Attention and Concentration: Easily Distracted Memory: Impaired Mood: Anxious Affect: Anxious Thought Process & Associations: Disorganized Thought Content: Other (disorganized) Hallucination Type: None Delusion Type: None Suicidal Ideation: No Suicidal Plan: No Suicidal Intention: No Homicidal Ideation: No Homicidal Plan: No Homicidal Intention: No Insight: Poor Judgment: Poor Discharge/Advance Care Plan Health Problems: (1) OTHER ALZHEIMER'S DISEASE (2) DEMENTIA IN OTH DISEASES CLASSD ELSWHR W BEHAVIORAL DISTURB Goals to promote your health * To prevent worsening of your condition and complications * To maintain your health at the optimal level Directions to meet your goals Take your medications as prescribed Follow your dietary instruction Follow activity as directed Keep your appointments as scheduled Take your immunizations and boosters as scheduled If your symptoms worsen call your PCP, if no PCP go to Urgent Care Center or Emergency Room For 06/03 questions related to your inpatient stay or results of tests pending at discharge, please contact Dr. Sanford Patel at Smoking is Dangerous to Your Health. Avoid second hand smoking Sanford Patel MD Sep 01, 2017 09:24
[2017-09-01] MEDS: QUEtiapine FUMARATE 25 MG TAB PO SCH (12:13)
== END 2017-09-01 16:00 | disposition home or self-care (01) | DRG 57 ==
LOC: NEPJ 17:00 → NEDA 22:48 → H250 23:29
PROVIDERS: ADMIT Psychiatry & Neurology Psychiatry; ATTEND Psychiatry & Neurology Psychiatry
DX: G30.9 Alzheimer's disease, unspecified (principal); R45.851 Suicidal ideations; E11.65 Type 2 diabetes mellitus with hyperglycemia; F02.80 Dementia in other diseases classified elsewhere, unspecified severity, without behavioral disturbance, psychotic disturbance, mood disturbance, and anxiety; I10 Essential (primary) hypertension; N40.1 Benign prostatic hyperplasia with lower urinary tract symptoms; N39.498 Other specified urinary incontinence; R94.4 Abnormal results of kidney function studies; Z79.4 Long term (current) use of insulin
CPT/HCPCS: 70450; 80048; 80053; 80061; 80307; 81001; 82948; 83036; 84443; 85025; 87086; 93005; 96374; J1200; J1630; J1815; J2060